=== PATIENT | male | born 1930 | race Hispanic/Latino ===

== ENCOUNTER 2018-11-08 20:18 | Emergency (ER) | payer MEDICARE ==
[2018-11-08] MEDS ORDERED: LOPRESSOR IV ONE (20:48)
[2018-11-08] MEDS ORDERED: TYLENOL PO ONE (20:48)
[2018-11-08] MEDS ORDERED: NACL 0.9% 500 ML 500 ML IV ONE (20:48)
[2018-11-08] MEDS ORDERED: NACL 0.9% 500 ML IR ONE (20:48)
[2018-11-08] MEDS ORDERED: BOOSTRIX IM ONE (20:49)
--- NOTE | 2018-11-08 20:54 | Emergency Department Report ---
ED Fall HPI - General Chief Complaint: Fall Stated Complaint: HYPERGLYCEMIA/FALL Time Seen by Provider: 11/08/18 20:29 Source: patient, EMS, old records reviewed Mode of arrival: Stretcher - History of Present Illness Initial Comments: Mr. Rodríguez is an 88 yo male with hx of dementia, CAD, CKD, CHF, atrial fibrillation who presents via EMS for fall in driveway. He struck head on pavement after fall while walking to mailbox. Denies chest pain. No amnesia surrounding event. Unwitnessed fall. According to EMR, anticoagulation contraindicated with hx of frequent falls. MD Complaint: fall -: This evening Fall From: standing When Fall Occurred: unsure Place Fall Occurred: home Loss of Consciousness: unsure Prolonged Down Time?: unclear Symptoms Prior to Fall: none Location: head Severity: moderate Quality: aching Context: tripped/slipped Associated Symptoms: headache - Related Data Home Medications Medication Instructions Recorded Confirmed Last Taken Insulin Aspart [Novolog] 100 unit SUB-Q DAILY 05/14/18 05/14/18 Unknown Allergies Allergy/AdvReac Type Severity Reaction Status Date / Time No Known Allergies Allergy Unverified 12/19/16 21:37 ED Review of Systems ROS: Stated complaint: HYPERGLYCEMIA/FALL Other details as noted in HPI Comment: All other systems reviewed and negative Eyes: denies: vision change Respiratory: denies: cough, shortness of breath Cardiovascular: denies: chest pain, palpitations ED Past Medical Hx - Past Medical History Previous Medical History?: Yes Hx Hypertension: Yes Hx Congestive Heart Failure: Yes Hx Diabetes: Yes Hx Deep Vein Thrombosis: No Hx Psychiatric Treatment: Yes (alzheimers) Hx Dementia: Yes Additional medical history: Afib? - Surgical History Hx Coronary Stent: Yes Hx Pacemaker: No Hx Internal Defibrillator: (?) Additional Surgical History: 1 heart stent - Social History Smoking Status: Never Smoker Substance Use Type: None - Medications Home Medications: Home Medications Medication Instructions Recorded Confirmed Last Taken Type Insulin Aspart [Novolog] 100 unit SUB-Q DAILY 05/14/18 05/14/18 Unknown History ED Physical Exam - General Limitations: Physical Limitation General appearance: alert, in no apparent distress - Head Head exam: Present: normocephalic, other (3 cm in length right forehead laceration horizontal just above right eyebrow 1 cm in depth) - Eye Eye exam: Present: normal appearance - ENT ENT exam: Present: mucous membranes moist - Neck Neck exam: Present: normal inspection, full ROM - Respiratory Respiratory exam: Present: normal lung sounds bilaterally. Absent: respiratory distress, wheezes, rales, rhonchi - Cardiovascular Cardiovascular Exam: Present: normal rhythm, tachycardia, irregular rhythm. Absent: systolic murmur, diastolic murmur, rubs, gallop - GI/Abdominal GI/Abdominal exam: Present: soft, normal bowel sounds. Absent: distended, tenderness, guarding, rebound - Rectal Rectal exam: Present: deferred - Extremities Exam Extremities exam: Present: normal inspection, other (no tenderness no deformity) - Back Exam Back exam: Present: normal inspection - Neurological Exam Neurological exam: Present: alert, other (oriented to name and place) - Psychiatric Psychiatric exam: Present: normal affect, normal mood - Skin Skin exam: Present: warm, dry, intact, normal color. Absent: rash ED Course Vital Signs 11/08/18 11/08/18 11/08/18 20:23 20:25 20:30 Temperature 98.4 F Pulse Rate 120 H 137 H 121 H Respiratory 11 L 12 13 Rate Blood Pressure 136/81 139/73 O2 Sat by Pulse 98 99 99 Oximetry 11/08/18 11/08/18 11/08/18 20:46 21:18 21:30 Temperature Pulse Rate 115 H 112 H 113 H Respiratory 13 18 11 L Rate Blood Pressure 139/88 127/89 O2 Sat by Pulse 98 92 99 Oximetry - Laceration /Wound Repair Right Face Wound Location: face Wound's Depth, Shape: superficial Wound Explored: clean Betadine Prep?: No Wound Debrided: minimal Wound Repaired With: Dermabond Sterile Dressing Applied?: No Progress: 3 layers of Dermabond tissue adhesive provided good Skin approximation ED Medical Decision Making - Lab Data Result diagrams: 11/08/18 21:01 11/08/18 21:01 - EKG Data 11/08/18 20:53 EKG obtained 2034 Atrial fibrillation RVR rate 130 beats a minute normal axis no ST elevation diffuse T-wave flattening prolonged QT - Radiology Data Radiology results: report reviewed CT head unremarkable for frontal scalp laceration and swelling no intracranial abnormality - Medical Decision Making 1. Fall with head injury facial laceration, tetanus booster provided, Dermabond laceration repair 2. Atrial fibrillation RVR treated with IV metoprolol, also provided IV hydration with history of dehydration, daughter will provide home medication tonight for further rate control 3. Hyperglycemia will be watched by her daughter at home Critical care attestation.: If time is entered above; I have spent that time in minutes in the direct care of this critically ill patient, excluding procedure time. ED Disposition Clinical Impression: Closed head injury, Facial laceration, Fibrillation, atrial, Hyperglycemia Disposition: DC-01 TO HOME OR SELFCARE Is pt being admited?: No Does the pt Need Aspirin: No Condition: Stable Instructions: Skin Adhesive Care (ED)
[2018-11-08 21:08] LABS: Basophils # (Auto) 0.1 K/mm3 (0.0-0.1); Basophils % (Auto) 1.1 % (0.0-1.8); Eosinophils # (Auto) 0.3 K/mm3 (0.0-0.4); Eosinophils % (Auto) 3.3 % (0.0-4.3); Lymphocytes # (Auto) 2.8 K/mm3 (1.2-5.4); Lymphocytes % (Auto) 33.8 % (13.4-35.0); Mean Corpuscular HGB Conc 33 % (32-34); Mean Corpuscular Volume 91 fl (84-94); Monocytes # (Auto) 0.7 K/mm3 (0.0-0.8); Monocytes % (Auto) 8.1 % (0.0-7.3); Platelet Count 270 K/mm3 (140-440); Red Blood Count 3.97 M/mm3 (3.65-5.03); Red Cell Distribution Width 14.7 % (13.2-15.2)
[2018-11-08 21:20] LABS: Calcium 8.5 mg/dL (8.4-10.2)
--- NOTE | 2018-11-08 21:33 | Cat Scan Report ---
PROCEDURE: CT HEAD/BRAIN WO CON TECHNIQUE: Computerized tomography of the head was performed without contrast material. CT DOSE LENGTH PRODUCT: 920.5 mGycm HISTORY: closed head injury fall COMPARISONS: May 14 2018 . FINDINGS: Skull and scalp: Right frontal scalp laceration is identified with mild degree swelling. . Paranasal sinuses: Normal . Ventricles and subarachnoid spaces: Prominent consistent with cerebral atrophy appropriate for patie nt's age. There is ventricular asymmetry which is most likely a normal variation. . Cerebrum: No evidence of hemorrhage, acute infarction or mass . Cerebellum and brainstem: No evidence of hemorrhage, acute infarction or mass . Vasculature: Normal . Other: None . ASPECTS: 10 IMPRESSION: No acute intracranial abnormality Right frontal scalp laceration and swelling. This document is electronically signed by Natalio Potter MD., Nov 08 2018 09:31:04 PM ET
[2018-11-08 23:06] VITALS: BP 128/81
== END 2018-11-08 23:06 | disposition home or self-care (01) ==
LOC: ED 20:18
DX: S01.81XA Laceration without foreign body of other part of head, initial encounter (principal); I48.91 Unspecified atrial fibrillation; E11.65 Type 2 diabetes mellitus with hyperglycemia; I13.0 Hypertensive heart and chronic kidney disease with heart failure and stage 1 through stage 4 chronic kidney disease, or unspecified chronic kidney disease; E11.22 Type 2 diabetes mellitus with diabetic chronic kidney disease; N18.9 Chronic kidney disease, unspecified; I50.9 Heart failure, unspecified; I25.10 Atherosclerotic heart disease of native coronary artery without angina pectoris; Z95.1 Presence of aortocoronary bypass graft; Z79.4 Long term (current) use of insulin; W01.0XXA Fall on same level from slipping, tripping and stumbling without subsequent striking against object, initial encounter; Y93.89 Activity, other specified; Y92.099 Unspecified place in other non-institutional residence as the place of occurrence of the external cause; Y99.8 Other external cause status
CPT/HCPCS: 36415; 70450; 80048; 85025; 90471; 90715; 93005; 93010; 96374; 99284

== ENCOUNTER 2018-12-02 06:23 | Inpatient (IN) | payer MEDICARE ==
--- NOTE | 2018-12-02 07:05 | Emergency Department Report ---
ED General Adult HPI - General Chief complaint: Hyperglycemia Stated complaint: DKA Time Seen by Provider: 12/02/18 06:57 Source: EMS Mode of arrival: Stretcher Limitations: No Limitations - History of Present Illness Initial comments: The patient presents to the emergency department with a chief complaint elevated blood glucose levels. Patient states she's been out of his insulin for the last 4 days. Patient complains of vomiting for the last 3-4 days as well. Patient denies any chest pain, shortness breath, or diarrhea. -: Gradual Severity scale (0 -10): 0 Consistency: constant Improves with: none Worsens with: none Associated Symptoms: denies other symptoms Treatments Prior to Arrival: none - Related Data Home Medications Medication Instructions Recorded Confirmed Last Taken Insulin Aspart [Novolog] 100 unit SUB-Q DAILY 05/14/18 05/14/18 Unknown Allergies Allergy/AdvReac Type Severity Reaction Status Date / Time No Known Allergies Allergy Unverified 12/19/16 21:37 ED Review of Systems ROS: Stated complaint: DKA Other details as noted in HPI Comment: All other systems reviewed and negative Constitutional: denies: chills, fever Eyes: denies: eye pain, eye discharge, vision change ENT: denies: ear pain, throat pain Respiratory: denies: cough, shortness of breath, wheezing Cardiovascular: denies: chest pain, palpitations Endocrine: no symptoms reported Gastrointestinal: nausea, vomiting. denies: abdominal pain, diarrhea Genitourinary: denies: urgency, dysuria Musculoskeletal: denies: back pain, joint swelling, arthralgia Skin: denies: rash, lesions Neurological: denies: headache, weakness, paresthesias Psychiatric: denies: anxiety, depression Hematological/Lymphatic: denies: easy bleeding, easy bruising ED Past Medical Hx - Past Medical History Previous Medical History?: Yes Hx Hypertension: Yes Hx Congestive Heart Failure: Yes Hx Diabetes: Yes Hx Deep Vein Thrombosis: No Hx Psychiatric Treatment: Yes (alzheimers) Hx Dementia: Yes Additional medical history: Afib? - Surgical History Past Surgical History?: Yes Hx Coronary Stent: Yes Hx Pacemaker: No Hx Internal Defibrillator: (?) Additional Surgical History: 1 heart stent - Social History Smoking Status: Never Smoker Substance Use Type: None - Medications Home Medications: Home Medications Medication Instructions Recorded Confirmed Last Taken Type Insulin Aspart [Novolog] 100 unit SUB-Q DAILY 05/14/18 05/14/18 Unknown History ED Physical Exam - General Limitations: No Limitations General appearance: alert, in no apparent distress - Head Head exam: Present: atraumatic, normocephalic - Eye Eye exam: Present: normal appearance, PERRL, EOMI - ENT ENT exam: Present: mucous membranes dry - Neck Neck exam: Present: normal inspection - Respiratory Respiratory exam: Present: normal lung sounds bilaterally. Absent: respiratory distress - Cardiovascular Cardiovascular Exam: Present: normal rhythm, tachycardia. Absent: systolic murmur, diastolic murmur, rubs, gallop - GI/Abdominal GI/Abdominal exam: Present: soft, normal bowel sounds. Absent: distended, tenderness - Rectal Rectal exam: Present: deferred - Extremities Exam Extremities exam: Present: normal inspection - Back Exam Back exam: Present: normal inspection - Neurological Exam Neurological exam: Present: alert, oriented X3, CN II-XII intact. Absent: motor sensory deficit - Psychiatric Psychiatric exam: Present: normal affect, normal mood - Skin Skin exam: Present: warm, dry, intact, normal color. Absent: rash ED Course Vital Signs 12/02/18 12/02/18 12/02/18 06:46 07:44 08:11 Temperature 97.6 F Pulse Rate 96 H 123 H 136 H Respiratory 19 Rate Blood Pressure 115/46 Blood Pressure 123/36 [Right] O2 Sat by Pulse 98 Oximetry 12/02/18 12/02/18 12/02/18 08:18 08:39 09:02 Temperature Pulse Rate 126 H 120 H 140 H Respiratory 22 22 22 Rate Blood Pressure Blood Pressure 96/46 99/38 108/52 [Right] O2 Sat by Pulse 97 97 97 Oximetry 12/02/18 09:28 Temperature Pulse Rate 133 H Respiratory Rate Blood Pressure 133/50 Blood Pressure [Right] O2 Sat by Pulse Oximetry ED Medical Decision Making - Lab Data Result diagrams: 12/02/18 07:03 12/02/18 07:03 Lab Results 12/02/18 12/02/18 12/02/18 Range/Units 06:37 07:03 07:03 WBC 18.5 H (4.5-11.0) K/mm3 RBC 4.03 (3.65-5.03) M/mm3 Hgb 11.9 (11.8-15.2) gm/dl Hct 38.1 (35.5-45.6) % MCV 95 H (84-94) fl MCH 29 (28-32) pg MCHC 31 L (32-34) % RDW 14.4 (13.2-15.2) % Plt Count 272 (140-440) K/mm3 Lymph % (Auto) 4.7 L (13.4-35.0) % [place] % (Auto) 5.8 (0.0-7.3) % Eos % (Auto) 0.1 (0.0-4.3) % Baso % (Auto) 0.6 (0.0-1.8) % Lymph # 0.9 L (1.2-5.4) K/mm3 [place] # 1.1 H (0.0-0.8) K/mm3 Eos # 0.0 (0.0-0.4) K/mm3 Baso # 0.1 (0.0-0.1) K/mm3 Seg Neutrophils % 88.8 H (40.0-70.0) % Seg Neutrophils # 16.4 H (1.8-7.7) K/mm3 VBG pH (7.320-7.420) Sodium 125 L (137-145) mmol/L Potassium 4.7 (3.6-5.0) mmol/L Chloride 79.3 L (98-107) mmol/L Carbon Dioxide TNR Anion Gap 45 mmol/L BUN 60 H (9-20) mg/dL Creatinine 3.5 H (0.8-1.5) mg/dL Estimated GFR 17 ml/min BUN/Creatinine Ratio 17 % Glucose 1151 H* (75-100) mg/dL POC Glucose > 500 H (70-105) Calcium 9.2 (8.4-10.2) mg/dL Total Bilirubin 0.30 (0.1-1.2) mg/dL AST 15 (5-40) units/L ALT 15 (7-56) units/L Alkaline Phosphatase 132 H (35-129) units/L Total Protein 6.4 (6.3-8.2) g/dL Albumin 3.7 L (3.9-5) g/dL Albumin/Globulin Ratio 1.4 % 12/02/ Range/Units 07:10 WBC (4.5-11.0) K/mm3 RBC (3.65-5.03) M/mm3 Hgb (11.8-15.2) gm/dl Hct (35.5-45.6) % MCV (84-94) fl MCH (28-32) pg MCHC (32-34) % RDW (13.2-15.2) % Plt Count (140-440) K/mm3 Lymph % (Auto) (13.4-35.0) % [place] % (Auto) (0.0-7.3) % Eos % (Auto) (0.0-4.3) % Baso % (Auto) (0.0-1.8) % Lymph # (1.2-5.4) K/mm3 [place] # (0.0-0.8) K/mm3 Eos # (0.0-0.4) K/mm3 Baso # (0.0-0.1) K/mm3 Seg Neutrophils % (40.0-70.0) % Seg Neutrophils # (1.8-7.7) K/mm3 VBG pH 7.098 L* (7.320-7.420) Sodium (137-145) mmol/L Potassium (3.6-5.0) mmol/L Chloride (98-107) mmol/L Carbon Dioxide Anion Gap mmol/L BUN (9-20) mg/dL Creatinine (0.8-1.5) mg/dL Estimated GFR ml/min BUN/Creatinine Ratio % Glucose (75-100) mg/dL POC Glucose (70-105) Calcium (8.4-10.2) mg/dL Total Bilirubin (0.1-1.2) mg/dL AST (5-40) units/L ALT (7-56) units/L Alkaline Phosphatase (35-129) units/L Total Protein (6.3-8.2) g/dL Albumin (3.9-5) g/dL Albumin/Globulin Ratio % - EKG Data -: EKG Interpreted by Me Rate: tachycardia (afib) - Radiology Data Radiology results: report reviewed - Medical Decision Making Given IV Cardizem IV fluids and IV insulin drip initiated Critical Care Time: Yes Critical care time in (mins) excluding proc time.: 35 Critical care attestation.: If time is entered above; I have spent that time in minutes in the direct care of this critically ill patient, excluding procedure time. ED Disposition Clinical Impression: Hyperglycemia, Afib Disposition: DC09 OP ADMIT IP TO THIS HOSP Is pt being admited?: Yes Does the pt Need Aspirin: No Condition: Fair Referrals: DESTINI CUELLAR [Other] - 3-5 Days
[2018-12-02 07:23] LABS: Basophils # (Auto) 0.1 K/mm3 (0.0-0.1); Basophils % (Auto) 0.6 % (0.0-1.8); Eosinophils % (Auto) 0.1 % (0.0-4.3); Hematocrit 38.1 % (35.5-45.6); Hemoglobin 11.9 gm/dl (11.8-15.2); Lymphocytes # (Auto) 0.9 K/mm3 (1.2-5.4); Lymphocytes % (Auto) 4.7 % (13.4-35.0); Mean Corpuscular HGB Conc 31 % (32-34); Mean Corpuscular Volume 95 fl (84-94); Monocytes # (Auto) 1.1 K/mm3 (0.0-0.8); Monocytes % (Auto) 5.8 % (0.0-7.3); Platelet Count 272 K/mm3 (140-440); Red Blood Count 4.03 M/mm3 (3.65-5.03); Red Cell Distribution Width 14.4 % (13.2-15.2)
[2018-12-02 07:35] LABS: Alanine Aminotransferase 15 units/L (7-56); Albumin 3.7 g/dL (3.9-5); BUN/Creatinine Ratio 17; Blood Urea Nitrogen 60 mg/dL (9-20); Calcium 9.2 mg/dL (8.4-10.2); Hemolysis Index 10
[2018-12-02] MEDS ORDERED: CARDIZEM IV ONE ×2 (07:43→09:16)
--- NOTE | 2018-12-02 07:56 | XRay Report ---
AP CHEST: HISTORY: Cough AP view of the chest demonstrates a normal mediastinal and cardiac contour with clear lungs and normal bony and soft tissue structures. IMPRESSION: Unremarkable AP chest. No significant change since 05/14/18.
[2018-12-02] MEDS ORDERED: ZOFRAN IM ONE (08:00)
[2018-12-02] MEDS ORDERED: NACL 0.9% 1000 ML 2,000 ML IV ONE (09:15)
[2018-12-02] MEDS ORDERED: D50W (25GM) Syringe IV PRN ×2 (09:18→13:09)
[2018-12-02] MEDS: HumuLIN R 100 UNITS in NACL 0.9% 99 ML IV SCH ×4 (10:27→21:12)
[2018-12-02 10:41] LABS: Bacteria,Urine 1+ /HPF (Negative); Bilirubin,Urine NEG (Negative); Blood,Urine SM (Negative); Color,Urine Yellow (Yellow); Mucus,Urine FEW /HPF; Urobilinogen,Urine < 2.0 mg/dL (<2.0)
[2018-12-02 10:41] LABS: BUN/Creatinine Ratio 17; Blood Urea Nitrogen 59 mg/dL (9-20); Hemolysis Index 5
--- NOTE | 2018-12-02 11:53 | History and Physical Report ---
History of Present Illness Date of examination: 12/02/18 Date of admission: 12/02/18 09:28 Chief complaint: Elevated blood glucose History of present illness: The patient is a 80-year-old white male with history of diabetes mellitus on insulin, chronic atrial fibrillation presents to the emergency department with a chief complaint elevated blood glucose levels. Patient states he has been out of his insulin for the last 4 days. Patient complains of vomiting for the last 3-4 days as well along with epigastric sharp, 7 out of 10 abdominal pain. Patient denies any chest pain, shortness breath, or diarrhea. On admission his blood glucose was 1151, pH of 7.09, bicarbonate 6, creatinine 3.5, UA Sofie for UTI with positive leukocytosis. Patient was given IV fluid bolus, placed on insulin drip. He also noted to have atrial fibrillation with RVR, given Car dizem 20 mg IV. Patient is getting admitted to the ICU for further prevention and management. Past History Past Medical History: atrial fib, diabetes, hypertension, hyperlipidemia, renal failure, other (dementia) Past Surgical History: Other (couldn't be obtained because of dementia) Social history: other (couldn't be obtained because of dementia) Family history: other (couldn't be obtained because of dementia) Review of System: Constitutional: no fever, no chills, no weight loss Ears, eyes, nose, mouth and throat: no nasal congestion, no nasal discharge, no sinus pressure, no vision change, no red eye. Neck: No neck pain or rigidity. Cardiovascular: No chest pain, no orthopnea, no palpitations, no leg swelling Respiratory: No shortness of breath, no cough, no congestion, no wheezing Gastrointestinal: + abdominal pain, + nausea, + vomiting Genitourinary : no dysuria, no hematuria Musculoskeletal: no joint swelling or muscle ache Integumentary: no rash, no pruritis Neurological: no parathesias, no numbness, no tingling Endocrine: no cold or heat intolerance, no polyuria or polydipsia Hematologic/Lymphatic: no easy bruising, no easy bleeding, no gland swelling Allergic/Immunologic: no urticaria, no angioedema. Medications and Allergies Allergies Allergy/AdvReac Type Severity Reaction Status Date / Time No Known Allergies Allergy Unverified 12/19/16 21:37 Home Medications Medication Instructions Recorded Confirmed Last Taken Type Insulin Aspart [Novolog] 100 unit SUB-Q DAILY 05/14/18 05/14/18 Unknown History Active Meds: Active Medications Dextrose (D50w (25gm) Syringe) 0 ml IV PRN PRN PRN Reason: Hypoglycemia Insulin Human Regular 100 (units/ Sodium Chloride) 100 mls @ 1 mls/hr IV TITR MATTI; Protocol Last Titration: 12/02/18 11:13 Dose: 11 units/hr, 11 mls/hr Documented by: Exam - Physical Exam Narrative exam: GENERAL: Elderly white male lying on bed appeared to be in mild discomfort. HEENT: Normocephalic. Atraumatic. No conjunctival congestion or icterus. Patient has moist mucous membranes. NECK: Supple. Trachea midline. CHEST/LUNGS: Clear to auscultated bilaterally, breathing nonlabored. No wheezes crackles or rhonchi. HEART/CARDIOVASCULAR: Regular in rate and rhythm. S1 and S2 positive. ABDOMEN: Abdomen is soft, epigastric tenderness. Patient has normal bowel sounds. SKIN: There is no rash. Warm and dry. NEURO: No focal motor deficit. Follows command. MUSCULOSKELETAL: No joint effusion or tenderness. EXTRIMITY: No edema, no cyanosis or clubbing. PSYCH: Cooperative. - Constitutional Vitals: Temp Pulse Resp BP Pulse Ox 97.6 F 123 H 22 123/51 97 12/02/18 06:46 12/02/18 10:33 12/02/18 10:33 12/02/18 10:33 12/02/18 10:33 Results - Labs CBC & Chem 7: 12/02/18 07:03 12/03/18 01:37 Labs: Abnormal lab results 12/02/18 12/02/18 12/02/18 Range/Units 06:37 07:03 07:03 WBC 18.5 H (4.5-11.0) K/mm3 MCV 95 H (84-94) fl MCHC 31 L (32-34) % Lymph % (Auto) 4.7 L (13.4-35.0) % Lymph # 0.9 L (1.2-5.4) K/mm3 Lake # 1.1 H (0.0-0.8) K/mm3 Seg Neutrophils % 88.8 H (40.0-70.0) % Seg Neutrophils # 16.4 H (1.8-7.7) K/mm3 VBG pH (7.320-7.420) Sodium 125 L (137-145) mmol/L Chloride 79.3 L (98-107) mmol/L Carbon Dioxide (22-30) mmol/L BUN 60 H (9-20) mg/dL Creatinine 3.5 H (0.8-1.5) mg/dL Glucose 1151 H* (75-100) mg/dL POC Glucose > 500 H (70-105) Phosphorus (2.5-4.5) mg/dL Alkaline Phosphatase 132 H (35-129) units/L Albumin 3.7 L (3.9-5) g/dL Urine WBC (Auto) (0.0-6.0) /HPF 12/02/18 12/02/18 12/02/18 Range/Units 07:10 09:07 09:07 WBC (4.5-11.0) K/mm3 MCV (84-94) fl MCHC (32-34) % Lymph % (Auto) (13.4-35.0) % Lymph # (1.2-5.4) K/mm3 [place] # (0.0-0.8) K/mm3 Seg Neutrophils % (40.0-70.0) % Seg Neutrophils # (1.8-7.7) K/mm3 VBG pH 7.098 L* (7.320-7.420) Sodium 127 L (137-145) mmol/L Chloride 82.2 L (98-107) mmol/L Carbon Dioxide 8 L* (22-30) mmol/L BUN 59 H (9-20) mg/dL Creatinine 3.4 H (0.8-1.5) mg/dL Glucose 1116 H* (75-100) mg/dL POC Glucose (70-105) Phosphorus 6.30 H (2.5-4.5) mg/dL Alkaline Phosphatase (35-129) units/L Albumin (3.9-5) g/dL Urine WBC (Auto) (0.0-6.0) /HPF 12/02/18 Range/Units 09:49 WBC (4.5-11.0) K/mm3 MCV (84-94) fl MCHC (32-34) % Lymph % (Auto) (13.4-35.0) % Lymph # (1.2-5.4) K/mm3 [place] # (0.0-0.8) K/mm3 Seg Neutrophils % (40.0-70.0) % Seg Neutrophils # (1.8-7.7) K/mm3 VBG pH (7.320-7.420) Sodium (137-145) mmol/L Chloride (98-107) mmol/L Carbon Dioxide (22-30) mmol/L BUN (9-20) mg/dL Creatinine (0.8-1.5) mg/dL Glucose (75-100) mg/dL POC Glucose (70-105) Phosphorus (2.5-4.5) mg/dL Alkaline Phosphatase (35-129) units/L Albumin (3.9-5) g/dL Urine WBC (Auto) 31.0 H (0.0-6.0) /HPF Assessment and Plan DKA with history of uncontrolled diabetes - - We will admit the patient to ICU, placed on DKA protocol - We'll continue insulin drip and monitor blood glucose every hour - We will continue IV fluid hydration with normal saline - Will change to D5 normal saline once blood glucose reaches below 250 - We'll repeat BMP every 6 hours till anion gap closes - We will replace potassium and magnesium as needed - We'll keep the patient nothing by mouth for now, will place on ADA diet when anion gap closes - We'll provide GI and DVT prophylaxis Atrial fib with RVR - Started on amiodarone drip, as needed metoprolol IV - Consult cardiology - per history Patient is not on any anticoagulation because of his recurrent fall and advanced age Acute kidney injury on possible CKD - Continue repeat, monitor creatinine, get renal ultrasound - Consult nephrology UTI with possible sepsis -Start on Rocephin, get blood culture urine culture Coffee-ground emesis - We'll place on Protonix iv, follow H&H - Consult GI Dementia, cont supportive care, need to get more history from daughter DVT prophylaxis, SCD The high probability of a clinically significant, sudden or life threatening deterioration of the system(s) required my full and direct attention, intervention and personal management. The aggregate critical care time was [45] minutes. This time is in addition to time spent performing reported procedures but includes the following: [x] Data Review and interpretation [x] Patient assessment and monitoring of vital signs [x] Documentation [x] Medication orders and management
[2018-12-02] MEDS: NACL 0.9% 1000 ML 1,000 ML IV SCH ×2 (12:00→17:10)
[2018-12-02 12:03] LABS: Calcium 8.8 mg/dL (8.4-10.2)
--- NOTE | 2018-12-02 12:05 | Consultation ---
History of Present Illness - Reason for Consult Consult date: 12/02/18 DKA - History of Present Illness 88 y/o with insulin dependent diabetes, who has been out of insulin for the last 4 days admitted with nausea and vomiting and found to have a blood sugar of >1000 Past History Past Medical History: diabetes Medications and Allergies Allergies Allergy/AdvReac Type Severity Reaction Status Date / Time No Known Allergies Allergy Unverified 12/19/16 21:37 Home Medications Medication Instructions Recorded Confirmed Last Taken Type Insulin Aspart [Novolog] 100 unit SUB-Q DAILY 05/14/18 05/14/18 Unknown History Active Meds: Active Medications Dextrose (D50w (25gm) Syringe) 0 ml IV PRN PRN PRN Reason: Hypoglycemia Insulin Human Regular 100 (units/ Sodium Chloride) 100 mls @ 1 mls/hr IV TITR MATTI; Protocol Last Titration: 12/02/18 11:13 Dose: 11 units/hr, 11 mls/hr Documented by: Sodium Chloride (Nacl 0.9% 1000 Ml) 1,000 mls @ 150 mls/hr IV DIRECT MATTI Review of Systems All systems: negative Exam - Constitutional Vitals: Temp Pulse Resp BP Pulse Ox 97.6 F 123 H 22 123/51 97 12/02/18 06:46 12/02/18 10:33 12/02/18 10:33 12/02/18 10:33 12/02/18 10:33 General appearance: Present: no acute distress, cachectic - EENT Eyes: Present: PERRL, EOM intact ENT: hearing intact - Neck Neck: Present: supple, normal ROM - Respiratory Respiratory effort: labored Respiratory: bilateral: diminished - Cardiovascular Rhythm: irregularly irregular (and tachycardic) - Abdominal General gastrointestinal: Present: soft, non-tender - Musculoskeletal Musculoskeletal: strength equal bilaterally Results - Labs CBC & Chem 7: 12/03/18 04:21 12/03/18 09:07 Labs: Abnormal lab results 12/02/18 12/02/18 12/02/18 Range/Units 06:37 07:03 07:03 WBC 18.5 H (4.5-11.0) K/mm3 MCV 95 H (84-94) fl MCHC 31 L (32-34) % Lymph % (Auto) 4.7 L (13.4-35.0) % Lymph # 0.9 L (1.2-5.4) K/mm3 [place] # 1.1 H (0.0-0.8) K/mm3 Seg Neutrophils % 88.8 H (40.0-70.0) % Seg Neutrophils # 16.4 H (1.8-7.7) K/mm3 VBG pH (7.320-7.420) Sodium 125 L (137-145) mmol/L Chloride 79.3 L (98-107) mmol/L Carbon Dioxide (22-30) mmol/L BUN 60 H (9-20) mg/dL Creatinine 3.5 H (0.8-1.5) mg/dL Glucose 1151 H* (75-100) mg/dL POC Glucose > 500 H (70-105) Phosphorus (2.5-4.5) mg/dL Alkaline Phosphatase 132 H (35-129) units/L Albumin 3.7 L (3.9-5) g/dL Urine WBC (Auto) (0.0-6.0) /HPF 12/02/18 12/02/18 12/02/18 Range/Units 07:10 09:07 09:07 WBC (4.5-11.0) K/mm3 MCV (84-94) fl MCHC (32-34) % Lymph % (Auto) (13.4-35.0) % Lymph # (1.2-5.4) K/mm3 [place] # (0.0-0.8) K/mm3 Seg Neutrophils % (40.0-70.0) % Seg Neutrophils # (1.8-7.7) K/mm3 VBG pH 7.098 L* (7.320-7.420) Sodium 127 L (137-145) mmol/L Chloride 82.2 L (98-107) mmol/L Carbon Dioxide 8 L* (22-30) mmol/L BUN 59 H (9-20) mg/dL Creatinine 3.4 H (0.8-1.5) mg/dL Glucose 1116 H* (75-100) mg/dL POC Glucose (70-105) Phosphorus 6.30 H (2.5-4.5) mg/dL Alkaline Phosphatase (35-129) units/L Albumin (3.9-5) g/dL Urine WBC (Auto) (0.0-6.0) /HPF 06/03/19 06/03/19 Range/Units 09:49 11:06 WBC (4.5-11.0) K/mm3 MCV (84-94) fl MCHC (32-34) % Lymph % (Auto) (13.4-35.0) % Lymph # (1.2-5.4) K/mm3 [place] # (0.0-0.8) K/mm3 Seg Neutrophils % (40.0-70.0) % Seg Neutrophils # (1.8-7.7) K/mm3 VBG pH (7.320-7.420) Sodium 129 L (137-145) mmol/L Chloride 84.0 L (98-107) mmol/L Carbon Dioxide (22-30) mmol/L BUN 59 H (9-20) mg/dL Creatinine 3.4 H (0.8-1.5) mg/dL Glucose (75-100) mg/dL POC Glucose (70-105) Phosphorus (2.5-4.5) mg/dL Alkaline Phosphatase (35-129) units/L Albumin (3.9-5) g/dL Urine WBC (Auto) 31.0 H (0.0-6.0) /HPF - Imaging and Cardiology Chest x-ray: image reviewed (clear, no evidence of acute disease) Assessment and Plan 88 y/o male with DKA and afib with RVR. 1. IV hydration 2. Rate control 3. Insulin drip until Anion Gap closes 4. Electrolyte monitoring per protocol CCT 31 minutes.
[2018-12-02] MEDS ORDERED: TYLENOL PO PRN (13:24)
[2018-12-02] MEDS ORDERED: NORCO 5/325 PO PRN (13:24)
[2018-12-02] MEDS ORDERED: ZOFRAN IV PRN (13:24)
[2018-12-02] MEDS ORDERED: CORDARONE 900 MG in D5W 482 ML IV SCH (14:00)
[2018-12-02] MEDS ORDERED: ROCEPHIN/NS 1 GM/50 ML 1 GM/50 ML BAG IV SCH (14:00)
[2018-12-02] MEDS ORDERED: LOPRESSOR IV SCH (14:00)
[2018-12-02] MEDS ORDERED: HumuLIN R 100 UNITS in NACL 0.9% 99 ML IV SCH (14:00)
--- NOTE | 2018-12-02 14:24 | Consultation ---
History of Present Illness Consult date: 12/02/18 Requesting physician: ASHISH NEIL Consult reason: atrial fibrillation History of present illness: Pt is an 88YO male with a past medical history of reported CAD s/p stent placement several years ago, paroxysmal atrial fibrillation (not a candidate for care home systemic anticoagulation in the past given advanced age, dementia and frequent falls), HTN, DM, CKD, dementia, frequent falls. He has been seen by our practice on prior hospitalizations but has not been compliant with OP follow up. Pt is a rather poor historian. He states that he does not recall why he came to the hospital. Per the chart, pt presented with c/o nausea, vomiting and elevated blood glucose levels after being out of his insulin for the last 4 days. Pt denies any cardiac complaints. Pt has been diagnosed with DKA and suspected GI bleed with coffee ground emesis. He was noted to be in AFib with RVR and thus cardiology has been consulted. He has been initiated on amio gtt. Echo done 11/2016 showed EF 35-40%, mild TR, mild pulm HTN with RVSP 42mmHg. Echo done 12/2017 showed EF 50-55%, trace MR, mild TR. Lexiscan MPI stress test done 12/2016 was negative for ischemia, no gated studies done due to AFib. Past History Past Medical History: atrial fib, CAD, diabetes, hypertension, other (ckd) Medications and Allergies Allergies Allergy/AdvReac Type Severity Reaction Status Date / Time No Known Allergies Allergy Unverified 12/19/16 21:37 Home Medications Medication Instructions Recorded Confirmed Last Taken Type Insulin Aspart [Novolog] 100 unit SUB-Q DAILY 05/14/18 05/14/18 Unknown History Active Meds: Active Medications Acetaminophen (Tylenol) 650 mg PO Q4H PRN PRN Reason: Pain MILD(1-3)/Fever >100.5/GRANDE Acetaminophen/Hydrocodone Bitart ([place] 5/325) 2 each PO Q6H PRN PRN Reason: Pain, Moderate (4-6) Dextrose (D50w (25gm) Syringe) 0 ml IV PRN PRN PRN Reason: Hypoglycemia Heparin Sodium (Porcine) (Heparin) 5,000 unit SUB-Q Q12HR MATTI Insulin Human Regular 100 (units/ Sodium Chloride) 100 mls @ 1 mls/hr IV TITR MATTI; Protocol Last Titration: 12/02/18 13:15 Dose: 22 units/hr, 22 mls/hr Documented by: Sodium Chloride (Nacl 0.9% 1000 Ml) 1,000 mls @ 150 mls/hr IV DIRECT MATTI Last Admin: 12/02/18 12:00 Dose: 150 mls/hr Documented by: Amiodarone HCl 900 mg/ (Dextrose) 500 mls @ 33.333 mls/hr IV DIRECT MATTI; Protocol Last Admin: 12/02/18 13:26 Dose: 1 mg/min, 33.333 mls/hr Documented by: Ceftriaxone Sodium (Rocephin/Ns 1 Gm/50 Ml) 1 gm in 50 mls @ 100 mls/hr IV Q24HR MATTI; Protocol Metoprolol Tartrate (Lopressor) 5 mg IV Q6HR MATTI Last Admin: 12/02/18 14:04 Dose: 5 mg Documented by: Ondansetron HCl (Zofran) 4 mg IV Q8H PRN PRN Reason: N/V unrelieved by Magno Last Admin: 12/02/18 14:10 Dose: 4 mg Documented by: Review of Systems Gastrointestinal: nausea, vomiting Endocrine: high blood sugars Physical Examination Vital Signs Temp Pulse Resp BP Pulse Ox 97.6 F 96 H 19 123/36 98 12/02/18 06:46 12/02/18 06:46 12/02/18 06:46 12/02/18 06:46 12/02/18 06:46 General appearance: no acute distress HEENT: Positive: PERRL, Normocephaly, Mucus Membranes Moist Neck: Positive: neck supple, trachea midline Cardiac: Positive: irregularly irregular, S1/S2, Tachycardia Lungs: Positive: Decreased Breath Sounds Skin: Negative: Rash Musculoskeletal: No Pain Extremities: Absent: edema Results 12/02/18 07:03 12/02/18 13:36 Cardiac Enzymes 12/02/18 Range/Units 07:03 AST 15 (5-40) units/L CBC 12/02/18 Range/Units 07:03 WBC 18.5 H (4.5-11.0) K/mm3 RBC 4.03 (3.65-5.03) M/mm3 Hgb 11.9 (11.8-15.2) gm/dl Hct 38.1 (35.5-45.6) % Plt Count 272 (140-440) K/mm3 Lymph # 0.9 L (1.2-5.4) K/mm3 [place] # 1.1 H (0.0-0.8) K/mm3 Eos # 0.0 (0.0-0.4) K/mm3 Baso # 0.1 (0.0-0.1) K/mm3 Comprehensive Metabolic Panel 12/02/18 12/02/18 12/02/18 Range/Units 07:03 09:07 09:07 Sodium 125 L 127 L (137-145) mmol/L Potassium 4.7 4.8 (3.6-5.0) mmol/L Chloride 79.3 L 82.2 L (98-107) mmol/L Carbon Dioxide TNR 8 L* TNR BUN 60 H 59 H (9-20) mg/dL Creatinine 3.5 H 3.4 H (0.8-1.5) mg/dL Glucose 1151 H* 1116 H* (75-100) mg/dL Calcium 9.2 9.0 (8.4-10.2) mg/dL AST 15 (5-40) units/L ALT 15 (7-56) units/L Alkaline Phosphatase 132 H (35-129) units/L Total Protein 6.4 (6.3-8.2) g/dL Albumin 3.7 L (3.9-5) g/dL 12/02/18 12/02/18 Range/Units 11:06 12:40 Sodium 129 L (137-145) mmol/L Potassium 4.4 (3.6-5.0) mmol/L Chloride 84.0 L (98-107) mmol/L Carbon Dioxide 6 L* BUN 59 H (9-20) mg/dL Creatinine 3.4 H (0.8-1.5) mg/dL Glucose 1043 H* 986 H* (75-100) mg/dL Calcium 8.8 (8.4-10.2) mg/dL AST (5-40) units/L ALT (7-56) units/L Alkaline Phosphatase (35-129) units/L Total Protein (6.3-8.2) g/dL Albumin (3.9-5) g/dL - Imaging and Cardiology Echo: report reviewed (12/2017 showed EF 50-55%, trace MR, mild TR. ) EKG: report reviewed, image reviewed EKG interpretations - Telemetry EKG Rhythm: Atrial Fibrillation - EKG Supraventricular dysrhythmia: atrial fibrillation Assessment and Plan Agree with present cardiac mangement, including amio gtt and IV lopressor as BPs permit. Pt has not been a candidate for care home systemic anticoagulation in the past given advanced age, dementia and frequent falls and pt currently has suspected GI bleed and therefore no plans for initiation of AC at this time. F/u echo. The patient has been seen in conjunction with Dr. Burks who agrees with the assessment and plan of care. - Patient Problems (1) Paroxysmal atrial fibrillation with rapid ventricular response Current Visit: Yes Status: Acute (2) DKA (diabetic ketoacidoses) Current Visit: Yes Status: Acute (3) Nausea and vomiting Current Visit: Yes Status: Acute (4) GI bleed Current Visit: Yes Status: Suspected (5) Acute on chronic renal insufficiency Current Visit: Yes Status: Acute (6) UTI (urinary tract infection) Current Visit: Yes Status: Acute (7) CAD (coronary artery disease) Current Visit: Yes Status: Chronic Qualifiers: Coronary Disease-Associated Artery/Lesion type: [place] artery (8) History of coronary artery stent placement Current Visit: Yes Status: Chronic (9) HTN (hypertension) Current Visit: Yes Status: Chronic Qualifiers: Hypertension type: essential hypertension Qualified Code(s): I10 - Essential (primary) hypertension (10) Dementia Current Visit: Yes Status: Chronic
[2018-12-02] MEDS ORDERED: MORPHINE IV PRN (14:46)
[2018-12-02] MEDS ORDERED: LOPRESSOR IV PRN (15:42)
[2018-12-02 15:47] LABS: Calcium 8.9 mg/dL (8.4-10.2)
[2018-12-02] MEDS: PROTONIX IV SCH ×2 (17:10→21:36)
--- NOTE | 2018-12-02 17:19 | Consultation ---
History of Present Illness - Reason for Consult Consult date: 12/02/18 acute renal failure, chronic renal failure, metabolic acidosis - History of Present Illness The patient is an 88 YO male with history significant for Type 2 DM, HTN, CAD s/p stent, Paroxysmal A.fib, Dementia and CKD stage 3 who was brought to the [facility] ED with nausea, vomiting and high blood glucose. Patient was confused to give any history. He was out of his insulin for the about 4 days. Also suspected GI bleed with h/o coffee ground emesis. Initial workup showed blood sugar 1151, bicarb 6 and creatinine 3.5. Pt was admitted with DKA and DARREN. He was also noted to be in AFib with RVR. Nephrology was consulted to manage DARREN. Past History Past Medical History: atrial fib, CAD, diabetes, hypertension, other (ckd) Medications and Allergies Allergies Allergy/AdvReac Type Severity Reaction Status Date / Time No Known Allergies Allergy Unverified 12/19/16 21:37 Home Medications Medication Instructions Recorded Confirmed Last Taken Type Insulin Aspart [Novolog] 100 unit SUB-Q DAILY 05/14/18 05/14/18 Unknown History Active Meds: Active Medications Acetaminophen (Tylenol) 650 mg PO Q4H PRN PRN Reason: Pain MILD(1-3)/Fever >100.5/GRANDE Acetaminophen/Hydrocodone Bitart ([place] 5/325) 2 each PO Q6H PRN PRN Reason: Pain, Moderate (4-6) Dextrose (D50w (25gm) Syringe) 0 ml IV PRN PRN PRN Reason: Hypoglycemia Insulin Human Regular 100 (units/ Sodium Chloride) 100 mls @ 1 mls/hr IV TITR MATTI; Protocol Last Titration: 12/02/18 15:55 Dose: Infused Documented by: Sodium Chloride (Nacl 0.9% 1000 Ml) 1,000 mls @ 150 mls/hr IV DIRECT MATTI Last Admin: 12/02/18 17:10 Dose: 150 mls/hr Documented by: Amiodarone HCl 900 mg/ (Dextrose) 500 mls @ 33.333 mls/hr IV DIRECT MATTI; Protocol Last Admin: 12/02/18 13:26 Dose: 1 mg/min, 33.333 mls/hr Documented by: Ceftriaxone Sodium (Rocephin/Ns 1 Gm/50 Ml) 1 gm in 50 mls @ 100 mls/hr IV Q24HR [facility]; Protocol Last Admin: 12/02/18 17:04 Dose: 100 mls/hr Documented by: Metoprolol Tartrate (Lopressor) 5 mg IV Q6HR PRN PRN Reason: Tachyarrhythmias Morphine Sulfate (Morphine) 2 mg IV Q4H PRN PRN Reason: Pain , Severe (7-10) Ondansetron HCl (Zofran) 4 mg IV Q8H PRN PRN Reason: N/V unrelieved by Reglan Last Admin: 12/02/18 14:10 Dose: 4 mg Documented by: Pantoprazole Sodium (Protonix) 40 mg IV BID [facility] Last Admin: 12/02/18 17:10 Dose: 40 mg Documented by: Review of Systems ROS unobtainable: due to mental status Exam - Vital Signs Vital signs: Vital Signs Temp Pulse Resp BP Pulse Ox 97.6 F 96 H 19 123/36 98 12/02/18 06:46 12/02/18 06:46 12/02/18 06:46 12/02/18 06:46 12/02/18 06:46 - General Appearance General appearance: well-developed, appears stated age, other (not in distress) EENT: ATNC, PERRL, mucous membranes dry Neck: Present: neck supple, trachea midline Respiratory: Clear to Ascultation Heart: irregularly irregular, S1S2, no murmurs Gastrointestinal: Present: normoactive bowel sounds. Absent: tenderness, distended Integumentary: no rash, warm and dry Neurologic: other (stuporous) Musculoskeletal: Present: other (no edema) Results - Lab Results 12/03/18 04:21 12/03/18 09:07 Most recent lab results Calcium 8.9 mg/dL (8.4-10.2) 12/02/18 15:01 Phosphorus 5.20 mg/dL (2.5-4.5) H 12/02/18 13:36 Magnesium 1.80 mg/dL (1.7-2.3) 12/02/18 13:36 Assessment and Plan 1. Acute kidney injury: Vasomotor / hemodynamically mediated DARREN superimposed on CKD stage 3 in the setting of volume depletion / DKA. Continue IV fluids. Renal function is improving. Monitor renal function. Renal prognosis is guarded. Avoid nephrotoxic agents. Meds dosage based on GFR. 2. FEN: Hypkalemia, replete K. Continue IV fluids. Monitor lytes. 3. DKA: On Insulin drip. 4. UTI. 5. Paroxysmal A.fib. 6. Dementia.
[2018-12-02 19:31] LABS: Calcium 8.8 mg/dL (8.4-10.2)
[2018-12-02] MEDS: KCL 10MEQ/100ML 10 MEQ/100 ML BAG IV SCH ×4 (20:04→23:16)
[2018-12-02 21:52] LABS: Calcium 8.5 mg/dL (8.4-10.2)
[2018-12-02] MEDS ORDERED: HEPARIN SUB-Q SCH (22:00)
[2018-12-03] MEDS: NACL 0.9% 1000 ML 1,000 ML IV SCH (00:01)
[2018-12-03] MEDS: HumuLIN R 100 UNITS in NACL 0.9% 99 ML IV SCH ×4 (00:14→12:09)
[2018-12-03] MEDS ORDERED: D5W/0.45% NACL/KCL 20 MEQ 20 MEQ/1,000 ML BAG IV SCH (01:00)
[2018-12-03 02:17] LABS: Calcium 8.7 mg/dL (8.4-10.2)
[2018-12-03] MEDS ORDERED: NACL 0.9% 1000 ML 1,000 ML IV ONE ×3 (03:56→13:00)
[2018-12-03 04:36] LABS: Basophils % (Auto) 0.8 % (0.0-1.8); Eosinophils % (Auto) 0.1 % (0.0-4.3); Hematocrit 33.9 % (35.5-45.6); Hemoglobin 11.7 gm/dl (11.8-15.2); Lymphocytes # (Auto) 1.2 K/mm3 (1.2-5.4); Lymphocytes % (Auto) 24.7 % (13.4-35.0); Mean Corpuscular HGB Conc 34 % (32-34); Mean Corpuscular Volume 90 fl (84-94); Monocytes # (Auto) 0.2 K/mm3 (0.0-0.8); Monocytes % (Auto) 4.7 % (0.0-7.3); Platelet Count 236 K/mm3 (140-440); Red Blood Count 3.77 M/mm3 (3.65-5.03); Red Cell Distribution Width 13.6 % (13.2-15.2)
[2018-12-03 04:56] LABS: Calcium 8.4 mg/dL (8.4-10.2)
--- NOTE | 2018-12-03 06:56 | Event Note ---
Date: 12/03/18 ALIS Mello called to report pt BP 71/33 and HR 51. 1 liter NS bolus, stat EKG, PT, INR, and troponin ordered. Hold Amino gtt.
[2018-12-03] MEDS ORDERED: LEVOPHED DRIP 4 MG/NS 250 ML 4 MG/250 ML BAG IV ONE (07:15)
[2018-12-03] MEDS: LEVOPHED DRIP 4 MG/NS 250 ML 4 MG/250 ML BAG IV SCH ×2 (07:15→11:30)
--- NOTE | 2018-12-03 07:24 | Event Note ---
Date: 12/03/18 I was called earlier this morning by the Nursing staff that the patient was hypotensive, agonal breathing and severe bradycardia. Patient will be intubated, centralline to be placed and will be placed on levophed. Patient was given atropine and heart rate normalized. Family notified.
[2018-12-03] MEDS ORDERED: SODIUM BICARBONATE 150 MEQ in D5W 1,000 ML IV SCH (08:00)
--- NOTE | 2018-12-03 08:16 | XRay Report ---
AP CHEST: HISTORY: Endotracheal tube placement The endotracheal tube is in good position terminating 4.7 cm superior to the ignacia. Heart size and pulmonary vascularity are within normal limits. Mild bibasilar atelectatic changes are identified. No pleural effusion or pneumothorax. IMPRESSION: Adequate endotracheal tube placement. Mild bibasilar atelectasis.
--- NOTE | 2018-12-03 08:21 | XRay Report ---
AP ABDOMEN: HISTORY: Nasogastric tube placement. The nasogastric tube terminates in the fundus of the stomach. There are gas-filled loops of bowel in the upper abdomen suggestive of mild ileus or partial obstruction. The pelvis is not included. Subtle gas overlies the liver shadow which could represent pneumobilia or portal venous gas. IMPRESSION: The nasogastric tube terminates in the fundus of the stomach. Incomplete abdomen but a mild diffuse ileus is suspected. A partial bowel obstruction is difficult to exclude. There is subtle gas overlying the liver shadow which could represent pneumobilia or portal venous gas. Given these findings, further evaluation with CT abdomen pelvis with IV contrast should be considered.
[2018-12-03] MEDS ORDERED: LEVOPHED DRIP 4 MG/NS 250 ML 4 MG/250 ML BAG IV SCH (09:00)
--- NOTE | 2018-12-03 09:13 | Progress Note ---
Assessment and Plan 1. Acute kidney injury: Vasomotor / hemodynamically mediated DARREN superimposed on CKD stage 3 in the setting of volume depletion / DKA. Continue IV fluids. Renal function remains the same. Monitor renal function. Renal prognosis is guarded. Avoid nephrotoxic agents. Meds dosage based on GFR. 2. FEN: Metabolic acidosis, bicarbonate drip. Hypokalemia, replete K. Continue IV fluids. Monitor lytes. 3. DKA: On Insulin drip. 4. Shock: On Levophed. 5. UTI. 6. Paroxysmal A.fib. 7. Dementia. Subjective Date of service: 12/03/18 Interval history: Patient was seen and examined at the bedside. Patient is intubated on vent. Objective - Vital Signs Vital signs: Vital Signs - 12hr 12/02/18 12/02/18 12/02/18 21:21 21:30 21:41 Temperature Pulse Rate 83 83 83 Pulse Rate [ From Monitor] Respiratory 26 H 31 H 30 H Rate Blood Pressure 98/33 96/43 96/43 O2 Sat by Pulse 98 97 97 Oximetry 12/02/18 12/02/18 12/02/18 21:51 22:00 22:11 Temperature Pulse Rate 82 83 83 Pulse Rate [ From Monitor] Respiratory 26 H 32 H 29 H Rate Blood Pressure 96/43 89/45 99/40 O2 Sat by Pulse 97 98 98 Oximetry 12/02/18 12/02/18 12/02/18 22:21 22:30 22:40 Temperature Pulse Rate 84 85 79 Pulse Rate [ From Monitor] Respiratory 30 H 33 H 35 H Rate Blood Pressure 99/40 99/45 99/45 O2 Sat by Pulse 98 98 99 Oximetry 12/02/18 12/02/18 12/02/18 22:51 22:52 23:00 Temperature Pulse Rate 79 83 81 Pulse Rate [ From Monitor] Respiratory 32 H 33 H 33 H Rate Blood Pressure 99/45 99/45 95/41 O2 Sat by Pulse 97 93 98 Oximetry 12/02/18 12/02/18 12/02/18 23:01 23:05 23:11 Temperature 98.2 F Pulse Rate 81 80 Pulse Rate [ From Monitor] Respiratory 32 H 34 H Rate Blood Pressure 95/41 95/41 O2 Sat by Pulse 98 98 Oximetry 12/02/18 12/02/18 12/02/18 23:21 23:30 23:41 Temperature Pulse Rate 81 80 83 Pulse Rate [ From Monitor] Respiratory 32 H 24 34 H Rate Blood Pressure 95/41 90/46 95/41 O2 Sat by Pulse 98 97 93 Oximetry 12/02/18 12/03/18 12/03/18 23:51 00:00 00:11 Temperature Pulse Rate 81 81 81 Pulse Rate [ 81 From Monitor] Respiratory 35 H 31 H 35 H Rate Blood Pressure 95/41 96/46 90/46 O2 Sat by Pulse 94 96 96 Oximetry 12/03/18 12/03/18 12/03/18 00:21 00:30 00:41 Temperature Pulse Rate 82 82 82 Pulse Rate [ From Monitor] Respiratory 35 H 34 H 31 H Rate Blood Pressure 90/46 92/39 92/39 O2 Sat by Pulse 97 94 94 Oximetry 12/03/18 12/03/18 12/03/18 00:51 01:00 01:11 Temperature Pulse Rate 81 83 81 Pulse Rate [ From Monitor] Respiratory 38 H 37 H 38 H Rate Blood Pressure 92/39 101/36 96/46 O2 Sat by Pulse 95 92 90 Oximetry 12/03/18 12/03/18 12/03/18 01:21 01:30 01:41 Temperature Pulse Rate 83 79 83 Pulse Rate [ From Monitor] Respiratory 37 H 40 H 38 H Rate Blood Pressure 96/46 100/44 100/44 O2 Sat by Pulse 89 92 90 Oximetry 12/03/18 12/03/18 12/03/18 01:51 02:00 02:11 Temperature Pulse Rate 81 82 80 Pulse Rate [ From Monitor] Respiratory 41 H 32 H 41 H Rate Blood Pressure 100/44 81/38 101/36 O2 Sat by Pulse 90 69 L 90 Oximetry 12/03/18 12/03/18 12/03/18 02:21 02:30 02:41 Temperature Pulse Rate 88 85 82 Pulse Rate [ From Monitor] Respiratory 42 H 39 H 39 H Rate Blood Pressure 101/36 92/37 92/37 O2 Sat by Pulse 90 90 89 Oximetry 12/03/18 12/03/18 12/03/18 02:51 03:00 03:11 Temperature Pulse Rate 86 86 82 Pulse Rate [ From Monitor] Respiratory 41 H 41 H 34 H Rate Blood Pressure 92/37 90/38 90/38 O2 Sat by Pulse 87 87 86 Oximetry 06/10/1812/03/18 12/03/18 03:21 03:23 03:31 Temperature 97.5 F L Pulse Rate 84 85 Pulse Rate [ From Monitor] Respiratory 33 H 18 Rate Blood Pressure 90/38 90/38 O2 Sat by Pulse Oximetry 12/03/18 12/03/18 12/03/18 03:40 03:51 04:00 Temperature Pulse Rate 91 H 87 87 Pulse Rate [ 81 From Monitor] Respiratory 27 H 34 H 36 H Rate Blood Pressure 76/33 80/34 86/38 O2 Sat by Pulse 83 L 87 90 Oximetry 12/03/18 12/03/18 12/03/18 04:11 04:21 04:30 Temperature Pulse Rate 83 78 76 Pulse Rate [ From Monitor] Respiratory 36 H 34 H 27 H Rate Blood Pressure 86/38 86/35 82/32 O2 Sat by Pulse 90 91 93 Oximetry 12/03/18 12/03/18 12/03/18 04:41 04:51 05:00 Temperature Pulse Rate 78 76 82 Pulse Rate [ From Monitor] Respiratory 33 H 25 H 31 H Rate Blood Pressure 82/32 84/36 74/35 O2 Sat by Pulse 94 94 94 Oximetry 12/03/18 12/03/18 12/03/18 05:11 05:21 05:30 Temperature Pulse Rate 79 76 77 Pulse Rate [ From Monitor] Respiratory 29 H 27 H 26 H Rate Blood Pressure 84/36 80/32 74/34 O2 Sat by Pulse 94 94 93 Oximetry 12/03/18 12/03/18 12/03/18 05:41 05:51 06:00 Temperature Pulse Rate 77 72 69 Pulse Rate [ From Monitor] Respiratory 26 H 24 22 Rate Blood Pressure 74/34 77/30 64/34 O2 Sat by Pulse 90 91 90 Oximetry 12/03/18 08:00 Temperature 92.7 F L Pulse Rate Pulse Rate [ From Monitor] Respiratory Rate Blood Pressure O2 Sat by Pulse Oximetry - General Appearance General appearance: well-developed, appears stated age, intubated, other (on vent) EENT: ATNC, PERRL Neck: supple Respiratory: Present: Clear to Ascultation Cardiology: irregularly irregular, S1S2, no murmurs Gastrointestinal: normoactive bowel sounds, no tenderness, no distended Integumentary: no rash, warm and dry Neurologic: obtunded Musculoskeletal: other (no edema) - Lab 12/03/18 04:21 12/03/18 09:07 Most recent lab results Calcium 8.4 mg/dL (8.4-10.2) 12/03/18 04:21 Phosphorus 2.10 mg/dL (2.5-4.5) L D 12/03/18 04:21 Magnesium 1.80 mg/dL (1.7-2.3) 12/02/18 13:36 Medications & Allergies - Medications Allergies/Adverse Reactions: Allergies No Known Allergies Allergy (Unverified 12/19/16 21:37) Home Medications: Home Medications Medication Instructions Recorded Confirmed Last Taken Type Insulin Aspart [Novolog] 100 unit SUB-Q DAILY 05/14/18 05/14/18 Unknown History Active Medications: Generic Name Dose Route Start Last Admin Trade Name Freq PRN Reason Stop Dose Admin Acetaminophen 650 mg 12/02/18 13:24 Tylenol PO Q4H PRN Pain MILD(1-3)/Fever >100.5/GRANDE Acetaminophen/Hydrocodone Bitart 2 each 12/02/18 13:24 [place] 5/325 PO Q6H PRN Pain, Moderate (4-6) Dextrose 0 ml 12/02/18 13:09 D50w (25gm) Syringe IV PRN PRN Hypoglycemia Insulin Human Regular 100 100 mls @ 1 mls/hr 12/02/18 10:00 12/03/18 08:06 units/ Sodium Chloride IV 28 units/hr TITR MATTI 28 mls/hr Administration Protocol 1 UNITS/HR Amiodarone HCl 900 mg/ 500 mls @ 33.333 mls/hr 12/02/18 14:00 12/02/18 20:30 Dextrose IV 0.5 mg/min DIRECT MATTI 16.667 mls/hr Infusion Protocol 1 MG/MIN Norepinephrine 4 mg in 250 mls @ 7.5 mls/hr 12/03/18 08:00 12/03/18 09:00 Levophed Drip 4 Mg/Ns 250 Ml IV 16 mcg/min TITR MATTI 60 mls/hr Titration Protocol 2 MCG/MIN Sodium Bicarbonate 150 meq/ 1,150 mls @ 75 mls/hr 12/03/18 08:00 12/03/18 08:26 Dextrose IV 75 mls/hr DIRECT MATTI Administration Piperacillin Sod/Tazobactam Sod 3.375 gm in 50 mls @ 100 mls/hr 12/03/18 10:00 Zosyn/Ns 3.375gm/50ml IV Q8HR MATTI Protocol Metoprolol Tartrate 5 mg 12/02/18 15:42 Lopressor IV Q6HR PRN Tachyarrhythmias Morphine Sulfate 2 mg 12/02/18 14:46 Morphine IV Q4H PRN Pain , Severe (7-10) Ondansetron HCl 4 mg 12/02/18 13:24 12/02/18 14:10 Zofran IV 4 mg Q8H PRN Administration N/V unrelieved by Magno Pantoprazole Sodium 40 mg 12/02/18 15:00 12/02/18 21:36 Protonix IV 40 mg BID MATTI Administration
[2018-12-03 09:51] LABS: Albumin 2.4 g/dL (3.9-5)
[2018-12-03] MEDS ORDERED: ZOSYN/NS 3.375GM/50ML 3.375 GM/50 ML BAG IV SCH (10:00)
[2018-12-03] MEDS ORDERED: NACL 0.9% 1000 ML 2,000 ML IV ONE (10:00)
[2018-12-03 10:39] LABS: INR 1.33 (0.87-1.13)
[2018-12-03 10:40] LABS: Partial Thromboplastin Time 30.8 Sec. (24.2-36.6)
[2018-12-03] MEDS ORDERED: PEPCID IV SCH (11:00)
--- NOTE | 2018-12-03 11:09 | Progress Note ---
Assessment and Plan 88 y/o male with DKA and afib with RVR, now with bradycardia, altered mental state and acute respiratory failure. 1. IV hydration, needs more boluses now. 2. Severe metabolic acidosis, likely from hypotension. Increase rate on bicarb drip to 150 3. Continue insulin drip 4. Picc line placement and continue IV pressors. MAP of 60 is acceptable 5. Overall prognosis is guarded to poor. Will attempt to place art line and remove I/O. Ok with jouse. Will speak with daughter about overall prognosis. CCT 31 minutes. Subjective Date of service: 12/03/18 Interval history: patient had an acute change in clinical status at shift change. Required intubation and now on vasopresso therapy. Completely unresponsive on vent with no sedation. Daughter called by IMS this am. Currently getting picc lined place. Objective - Constitutional Vitals: Vital Signs - 12hr 12/02/18 12/02/18 12/02/18 23:05 23:11 23:21 Temperature 98.2 F Pulse Rate 80 81 Pulse Rate [ From Monitor] Respiratory 34 H 32 H Rate Blood Pressure 95/41 95/41 O2 Sat by Pulse 98 98 Oximetry 12/02/18 12/02/18 12/02/18 23:30 23:41 23:51 Temperature Pulse Rate 80 83 81 Pulse Rate [ From Monitor] Respiratory 24 34 H 35 H Rate Blood Pressure 90/46 95/41 95/41 O2 Sat by Pulse 97 93 94 Oximetry 12/03/18 12/03/18 12/03/18 00:00 00:11 00:21 Temperature Pulse Rate 81 81 82 Pulse Rate [ 81 From Monitor] Respiratory 31 H 35 H 35 H Rate Blood Pressure 96/46 90/46 90/46 O2 Sat by Pulse 96 96 97 Oximetry 12/03/18 12/03/18 12/03/18 00:30 00:41 00:51 Temperature Pulse Rate 82 82 81 Pulse Rate [ From Monitor] Respiratory 34 H 31 H 38 H Rate Blood Pressure 92/39 92/39 92/39 O2 Sat by Pulse 94 94 95 Oximetry 12/03/18 12/03/18 12/03/18 01:00 01:11 01:21 Temperature Pulse Rate 83 81 83 Pulse Rate [ From Monitor] Respiratory 37 H 38 H 37 H Rate Blood Pressure 101/36 96/46 96/46 O2 Sat by Pulse 92 90 89 Oximetry 12/03/18 12/03/18 12/03/18 01:30 01:41 01:51 Temperature Pulse Rate 79 83 81 Pulse Rate [ From Monitor] Respiratory 40 H 38 H 41 H Rate Blood Pressure 100/44 100/44 100/44 O2 Sat by Pulse 92 90 90 Oximetry 12/03/18 12/03/18 12/03/18 02:00 02:11 02:21 Temperature Pulse Rate 82 80 88 Pulse Rate [ From Monitor] Respiratory 32 H 41 H 42 H Rate Blood Pressure 81/38 101/36 101/36 O2 Sat by Pulse 69 L 90 90 Oximetry 12/03/18 12/03/18 12/03/18 02:30 02:41 02:51 Temperature Pulse Rate 85 82 86 Pulse Rate [ From Monitor] Respiratory 39 H 39 H 41 H Rate Blood Pressure 92/37 92/37 92/37 O2 Sat by Pulse 90 89 87 Oximetry 12/03/18 12/03/18 12/03/18 03:00 03:11 03:21 Temperature Pulse Rate 86 82 84 Pulse Rate [ From Monitor] Respiratory 41 H 34 H 33 H Rate Blood Pressure 90/38 90/38 90/38 O2 Sat by Pulse 87 86 Oximetry 12/03/18 12/03/18 12/03/18 03:23 03:31 03:40 Temperature 97.5 F L Pulse Rate 85 91 H Pulse Rate [ From Monitor] Respiratory 18 27 H Rate Blood Pressure 90/38 76/33 O2 Sat by Pulse 83 L Oximetry 12/03/18 12/03/18 12/03/18 03:51 04:00 04:11 Temperature Pulse Rate 87 87 83 Pulse Rate [ 81 From Monitor] Respiratory 34 H 36 H 36 H Rate Blood Pressure 80/34 86/38 86/38 O2 Sat by Pulse 87 90 90 Oximetry 12/03/18 12/03/18 12/03/18 04:21 04:30 04:41 Temperature Pulse Rate 78 76 78 Pulse Rate [ From Monitor] Respiratory 34 H 27 H 33 H Rate Blood Pressure 86/35 82/32 82/32 O2 Sat by Pulse 91 93 94 Oximetry 12/03/18 12/03/18 12/03/18 04:51 05:00 05:11 Temperature Pulse Rate 76 82 79 Pulse Rate [ From Monitor] Respiratory 25 H 31 H 29 H Rate Blood Pressure 84/36 74/35 84/36 O2 Sat by Pulse 94 94 94 Oximetry 12/03/18 12/03/18 12/03/18 05:21 05:30 05:41 Temperature Pulse Rate 76 77 77 Pulse Rate [ From Monitor] Respiratory 27 H 26 H 26 H Rate Blood Pressure 80/32 74/34 74/34 O2 Sat by Pulse 94 93 90 Oximetry 12/03/18 12/03/18 12/03/18 05:51 06:00 08:00 Temperature 92.7 F L Pulse Rate 72 69 Pulse Rate [ From Monitor] Respiratory 24 22 Rate Blood Pressure 77/30 64/34 O2 Sat by Pulse 91 90 Oximetry General appearance: Present: other (comatose) - EENT ENT: other (orally intubated, not on sedation) - Neck Neck: supple - Respiratory Respiratory: bilateral: diminished - Cardiovascular Rhythm: regular Heart Sounds: Present: S1 & S2 - Gastrointestinal General gastrointestinal: Present: soft, non-tender - Labs CBC & Chem 7: 12/03/18 04:21 12/03/18 09:07 Labs: Abnormal lab results 12/02/18 12/02/18 12/02/18 Range/Units 10:30 11:06 11:12 Hgb (11.8-15.2) gm/dl Hct (35.5-45.6) % PT (12.2-14.9) Sec. INR (0.87-1.13) POC ABG pH (7.35-7.45) POC ABG pO2 (80-105) Sodium 129 L (137-145) mmol/L Potassium (3.6-5.0) mmol/L Chloride 84.0 L (98-107) mmol/L Carbon Dioxide 6 L* (22-30) mmol/L BUN 59 H (9-20) mg/dL Creatinine 3.4 H (0.8-1.5) mg/dL Glucose 1043 H* (75-100) mg/dL POC Glucose > 500 H > 500 H (70-105) Lactic Acid (0.7-2.0) mmol/L Calcium (8.4-10.2) mg/dL Phosphorus (2.5-4.5) mg/dL AST (5-40) units/L Troponin T (0.00-0.029) ng/mL Total Protein (6.3-8.2) g/dL Albumin (3.9-5) g/dL 12/02/18 12/02/18 12/02/18 Range/Units 12:20 12:40 13:18 Hgb (11.8-15.2) gm/dl Hct (35.5-45.6) % PT (12.2-14.9) Sec. INR (0.87-1.13) POC ABG pH (7.35-7.45) POC ABG pO2 (80-105) Sodium (137-145) mmol/L Potassium (3.6-5.0) mmol/L Chloride (98-107) mmol/L Carbon Dioxide (22-30) mmol/L BUN (9-20) mg/dL Creatinine (0.8-1.5) mg/dL Glucose 986 H* (75-100) mg/dL POC Glucose > 500 H > 500 H (70-105) Lactic Acid (0.7-2.0) mmol/L Calcium (8.4-10.2) mg/dL Phosphorus (2.5-4.5) mg/dL AST (5-40) units/L Troponin T (0.00-0.029) ng/mL Total Protein (6.3-8.2) g/dL Albumin (3.9-5) g/dL 12/02/18 12/02/18 12/02/18 Range/Units 13:36 13:36 14:29 Hgb (11.8-15.2) gm/dl Hct (35.5-45.6) % PT (12.2-14.9) Sec. INR (0.87-1.13) POC ABG pH (7.35-7.45) POC ABG pO2 (80-105) Sodium 131 L (137-145) mmol/L Potassium (3.6-5.0) mmol/L Chloride 90.8 L (98-107) mmol/L Carbon Dioxide 7 L* (22-30) mmol/L BUN 53 H (9-20) mg/dL Creatinine 3.2 H (0.8-1.5) mg/dL Glucose 840 H* (75-100) mg/dL POC Glucose > 500 H (70-105) Lactic Acid (0.7-2.0) mmol/L Calcium (8.4-10.2) mg/dL Phosphorus 5.20 H (2.5-4.5) mg/dL AST (5-40) units/L Troponin T (0.00-0.029) ng/mL Total Protein (6.3-8.2) g/dL Albumin (3.9-5) g/dL 12/02/18 12/02/18 12/02/18 Range/Units 15:01 15:59 17:12 Hgb (11.8-15.2) gm/dl Hct (35.5-45.6) % PT (12.2-14.9) Sec. INR (0.87-1.13) POC ABG pH (7.35-7.45) POC ABG pO2 (80-105) Sodium 134 L (137-145) mmol/L Potassium (3.6-5.0) mmol/L Chloride 91.0 L (98-107) mmol/L Carbon Dioxide 5 L* (22-30) mmol/L BUN 58 H (9-20) mg/dL Creatinine 3.5 H (0.8-1.5) mg/dL Glucose 813 H* (75-100) mg/dL POC Glucose > 500 H > 500 H (70-105) Lactic Acid (0.7-2.0) mmol/L Calcium (8.4-10.2) mg/dL Phosphorus (2.5-4.5) mg/dL AST (5-40) units/L Troponin T (0.00-0.029) ng/mL Total Protein (6.3-8.2) g/dL Albumin (3.9-5) g/dL 12/02/18 12/02/18 12/02/18 Range/Units 18:26 18:50 20:04 Hgb (11.8-15.2) gm/dl Hct (35.5-45.6) % PT (12.2-14.9) Sec. INR (0.87-1.13) POC ABG pH (7.35-7.45) POC ABG pO2 (80-105) Sodium (137-145) mmol/L Potassium 2.6 L* D (3.6-5.0) mmol/L Chloride 95.0 L (98-107) mmol/L Carbon Dioxide 11 L (22-30) mmol/L BUN 56 H (9-20) mg/dL Creatinine 3.5 H (0.8-1.5) mg/dL Glucose 515 H* (75-100) mg/dL POC Glucose > 500 H 448 H (70-105) Lactic Acid (0.7-2.0) mmol/L Calcium (8.4-10.2) mg/dL Phosphorus (2.5-4.5) mg/dL AST (5-40) units/L Troponin T (0.00-0.029) ng/mL Total Protein (6.3-8.2) g/dL Albumin (3.9-5) g/dL 12/02/18 12/02/18 12/02/18 Range/Units 20:55 21:10 21:48 Hgb (11.8-15.2) gm/dl Hct (35.5-45.6) % PT (12.2-14.9) Sec. INR (0.87-1.13) POC ABG pH (7.35-7.45) POC ABG pO2 (80-105) Sodium 136 L (137-145) mmol/L Potassium 3.5 L D (3.6-5.0) mmol/L Chloride (98-107) mmol/L Carbon Dioxide 11 L (22-30) mmol/L BUN 52 H (9-20) mg/dL Creatinine 3.2 H (0.8-1.5) mg/dL Glucose 406 H (75-100) mg/dL POC Glucose 434 H 373 H (70-105) Lactic Acid (0.7-2.0) mmol/L Calcium (8.4-10.2) mg/dL Phosphorus (2.5-4.5) mg/dL AST (5-40) units/L Troponin T (0.00-0.029) ng/mL Total Protein (6.3-8.2) g/dL Albumin (3.9-5) g/dL 12/02/18 12/02/18 12/03/18 Range/Units 22:50 23:40 00:03 Hgb (11.8-15.2) gm/dl Hct (35.5-45.6) % PT (12.2-14.9) Sec. INR (0.87-1.13) POC ABG pH (7.35-7.45) POC ABG pO2 (80-105) Sodium (137-145) mmol/L Potassium (3.6-5.0) mmol/L Chloride (98-107) mmol/L Carbon Dioxide (22-30) mmol/L BUN (9-20) mg/dL Creatinine (0.8-1.5) mg/dL Glucose (75-100) mg/dL POC Glucose 387 H 303 H 325 H (70-105) Lactic Acid (0.7-2.0) mmol/L Calcium (8.4-10.2) mg/dL Phosphorus (2.5-4.5) mg/dL AST (5-40) units/L Troponin T (0.00-0.029) ng/mL Total Protein (6.3-8.2) g/dL Albumin (3.9-5) g/dL 12/03/18 12/03/18 12/03/18 Range/Units 01:00 01:37 01:59 Hgb (11.8-15.2) gm/dl Hct (35.5-45.6) % PT (12.2-14.9) Sec. INR (0.87-1.13) POC ABG pH (7.35-7.45) POC ABG pO2 (80-105) Sodium 136 L (137-145) mmol/L Potassium 3.3 L (3.6-5.0) mmol/L Chloride (98-107) mmol/L Carbon Dioxide 12 L (22-30) mmol/L BUN 51 H (9-20) mg/dL Creatinine 3.3 H (0.8-1.5) mg/dL Glucose 199 H (75-100) mg/dL POC Glucose 245 H 244 H (70-105) Lactic Acid (0.7-2.0) mmol/L Calcium (8.4-10.2) mg/dL Phosphorus (2.5-4.5) mg/dL AST (5-40) units/L Troponin T (0.00-0.029) ng/mL Total Protein (6.3-8.2) g/dL Albumin (3.9-5) g/dL 12/03/18 12/03/1812/03/19 Range/Units 03:07 03:48 04:21 Hgb (11.8-15.2) gm/dl Hct (35.5-45.6) % PT (12.2-14.9) Sec. INR (0.87-1.13) POC ABG pH (7.35-7.45) POC ABG pO2 (80-105) Sodium 136 L (137-145) mmol/L Potassium 3.5 L (3.6-5.0) mmol/L Chloride (98-107) mmol/L Carbon Dioxide 12 L (22-30) mmol/L BUN 52 H (9-20) mg/dL Creatinine 3.3 H (0.8-1.5) mg/dL Glucose 189 H (75-100) mg/dL POC Glucose 239 H 180 H (70-105) Lactic Acid (0.7-2.0) mmol/L Calcium (8.4-10.2) mg/dL Phosphorus (2.5-4.5) mg/dL AST (5-40) units/L Troponin T (0.00-0.029) ng/mL Total Protein (6.3-8.2) g/dL Albumin (3.9-5) g/dL 12/03/18 12/03/18 12/03/18 Range/Units 04:21 04:21 04:58 Hgb 11.7 L (11.8-15.2) gm/dl Hct 33.9 L (35.5-45.6) % PT (12.2-14.9) Sec. INR (0.87-1.13) POC ABG pH (7.35-7.45) POC ABG pO2 (80-105) Sodium (137-145) mmol/L Potassium (3.6-5.0) mmol/L Chloride (98-107) mmol/L Carbon Dioxide (22-30) mmol/L BUN (9-20) mg/dL Creatinine (0.8-1.5) mg/dL Glucose (75-100) mg/dL POC Glucose 208 H (70-105) Lactic Acid (0.7-2.0) mmol/L Calcium (8.4-10.2) mg/dL Phosphorus 2.10 L D (2.5-4.5) mg/dL AST (5-40) units/L Troponin T (0.00-0.029) ng/mL Total Protein (6.3-8.2) g/dL Albumin (3.9-5) g/dL 12/03/18 12/03/18 12/03/18 Range/Units 05:08 06:03 06:47 Hgb (11.8-15.2) gm/dl Hct (35.5-45.6) % PT (12.2-14.9) Sec. INR (0.87-1.13) POC ABG pH (7.35-7.45) POC ABG pO2 (80-105) Sodium (137-145) mmol/L Potassium (3.6-5.0) mmol/L Chloride (98-107) mmol/L Carbon Dioxide (22-30) mmol/L BUN (9-20) mg/dL Creatinine (0.8-1.5) mg/dL Glucose (75-100) mg/dL POC Glucose 196 H 214 H 215 H (70-105) Lactic Acid (0.7-2.0) mmol/L Calcium (8.4-10.2) mg/dL Phosphorus (2.5-4.5) mg/dL AST (5-40) units/L Troponin T (0.00-0.029) ng/mL Total Protein (6.3-8.2) g/dL Albumin (3.9-5) g/dL 12/03/18 12/03/18 12/03/18 Range/Units 07:22 08:04 09:07 Hgb (11.8-15.2) gm/dl Hct (35.5-45.6) % PT (12.2-14.9) Sec. INR (0.87-1.13) POC ABG pH 6.798 L (7.35-7.45) POC ABG pO2 (80-105) Sodium (137-145) mmol/L Potassium (3.6-5.0) mmol/L Chloride (98-107) mmol/L Carbon Dioxide (22-30) mmol/L BUN (9-20) mg/dL Creatinine (0.8-1.5) mg/dL Glucose (75-100) mg/dL POC Glucose 252 H (70-105) Lactic Acid (0.7-2.0) mmol/L Calcium (8.4-10.2) mg/dL Phosphorus (2.5-4.5) mg/dL AST (5-40) units/L Troponin T 0.059 H (0.00-0.029) ng/mL Total Protein (6.3-8.2) g/dL Albumin (3.9-5) g/dL 12/03/18 12/03/18 12/03/18 Range/Units 09:07 09:07 09:07 Hgb (11.8-15.2) gm/dl Hct (35.5-45.6) % PT 17.3 H (12.2-14.9) Sec. INR 1.33 H (0.87-1.13) POC ABG pH (7.35-7.45) POC ABG pO2 (80-105) Sodium (137-145) mmol/L Potassium (3.6-5.0) mmol/L Chloride 107.2 H (98-107) mmol/L Carbon Dioxide 13 L (22-30) mmol/L BUN 53 H (9-20) mg/dL Creatinine 3.8 H (0.8-1.5) mg/dL Glucose 203 H (75-100) mg/dL POC Glucose (70-105) Lactic Acid 6.10 H* (0.7-2.0) mmol/L Calcium 8.0 L (8.4-10.2) mg/dL Phosphorus (2.5-4.5) mg/dL AST 83 H (5-40) units/L Troponin T (0.00-0.029) ng/mL Total Protein 4.6 L D (6.3-8.2) g/dL Albumin 2.4 L (3.9-5) g/dL 12/03/18 12/03/18 12/03/18 Range/Units 09:08 09:26 09:42 Hgb (11.8-15.2) gm/dl Hct (35.5-45.6) % PT (12.2-14.9) Sec. INR (0.87-1.13) POC ABG pH 7.027 L 6.928 L (7.35-7.45) POC ABG pO2 72 L (80-105) Sodium (137-145) mmol/L Potassium (3.6-5.0) mmol/L Chloride (98-107) mmol/L Carbon Dioxide (22-30) mmol/L BUN (9-20) mg/dL Creatinine (0.8-1.5) mg/dL Glucose (75-100) mg/dL POC Glucose 222 H (70-105) Lactic Acid (0.7-2.0) mmol/L Calcium (8.4-10.2) mg/dL Phosphorus (2.5-4.5) mg/dL AST (5-40) units/L Troponin T (0.00-0.029) ng/mL Total Protein (6.3-8.2) g/dL Albumin (3.9-5) g/dL 12/03/18 Range/Units 10:19 Hgb (11.8-15.2) gm/dl Hct (35.5-45.6) % PT (12.2-14.9) Sec. INR (0.87-1.13) POC ABG pH (7.35-7.45) POC ABG pO2 (80-105) Sodium (137-145) mmol/L Potassium (3.6-5.0) mmol/L Chloride (98-107) mmol/L Carbon Dioxide (22-30) mmol/L BUN (9-20) mg/dL Creatinine (0.8-1.5) mg/dL Glucose (75-100) mg/dL POC Glucose 242 H (70-105) Lactic Acid (0.7-2.0) mmol/L Calcium (8.4-10.2) mg/dL Phosphorus (2.5-4.5) mg/dL AST (5-40) units/L Troponin T (0.00-0.029) ng/mL Total Protein (6.3-8.2) g/dL Albumin (3.9-5) g/dL - Imaging and cardiology Chest x-ray: image reviewed (intubated, ET tube is a little high with some atelectasis) Medications & Allergies - Medications Allergies/Adverse Reactions: Allergies No Known Allergies Allergy (Unverified 12/19/16 21:37) Home Medications: Home Medications Medication Instructions Recorded Confirmed Last Taken Type Insulin Aspart [Novolog] 100 unit SUB-Q DAILY 05/14/18 05/14/18 Unknown History Active Medications: Generic Name Dose Route Start Last Admin Trade Name Freq PRN Reason Stop Dose Admin Acetaminophen 650 mg 12/02/18 13:24 Tylenol PO Q4H PRN Pain MILD(1-3)/Fever >100.5/GRANDE Acetaminophen/Hydrocodone Bitart 2 each 12/02/18 13:24 Nerinx 5/325 PO Q6H PRN Pain, Moderate (4-6) Dextrose 0 ml 12/02/18 13:09 D50w (25gm) Syringe IV PRN PRN Hypoglycemia Famotidine 20 mg 12/03/18 11:00 Pepcid IV DAILY MATTI Insulin Human Regular 100 100 mls @ 1 mls/hr 12/02/18 10:00 12/03/18 10:05 units/ Sodium Chloride IV 32 units/hr TITR MATTI 32 mls/hr Titration Protocol 1 UNITS/HR Norepinephrine 4 mg in 250 mls @ 7.5 mls/hr 12/03/18 08:00 12/03/18 10:45 Levophed Drip 4 Mg/Ns 250 Ml IV 26 mcg/min TITR MATTI 97.5 mls/hr Titration Protocol 2 MCG/MIN Sodium Bicarbonate 150 meq/ 1,150 mls @ 150 mls/hr 12/03/18 08:00 12/03/18 08:26 Dextrose IV 75 mls/hr DIRECT MATTI Administration Sodium Chloride 2,000 mls @ 999 mls/hr 12/03/18 10:00 12/03/18 10:11 Nacl 0.9% 1000 Ml IV 12/03/18 12:00 999 mls/hr ONCE ONE Administration Metoprolol Tartrate 5 mg 12/02/18 15:42 Lopressor IV Q6HR PRN Tachyarrhythmias Morphine Sulfate 2 mg 12/02/18 14:46 Morphine IV Q4H PRN Pain , Severe (7-10) Ondansetron HCl 4 mg 12/02/18 13:24 12/02/18 14:10 Zofran IV 4 mg Q8H PRN Administration N/V unrelieved by Magno
[2018-12-03] MEDS ORDERED: ATROPINE 0.1% (CARDIAC) ONE (11:18)
--- NOTE | 2018-12-03 11:27 | Progress Note ---
Assessment and Plan Pt had bradycardia and respiratory failure this morning, amio gtt d/c'd and pt intubated. Pt currently hypotensive requiring levophed gtt, intubated, nonresponsive, not on sedation. In SR/ST on tele. no family at bedside. Cont supportive measures. Pt has not been a candidate for [place] systemic anticoagulation in the past given advanced age, dementia and frequent falls and pt currently has suspected GI bleed and therefore no plans for initiation of AC at this time. F/u echo. The patient has been seen in conjunction with Dr. Burks who agrees with the assessment and plan of care. - Patient Problems (1) Paroxysmal atrial fibrillation with rapid ventricular response Current Visit: Yes Status: Acute (2) Acute respiratory failure Current Visit: Yes Status: Acute (3) DKA (diabetic ketoacidoses) Current Visit: Yes Status: Acute (4) Nausea and vomiting Current Visit: Yes Status: Acute (5) GI bleed Current Visit: Yes Status: Suspected (6) Hypotension Current Visit: Yes Status: Acute (7) Acute on chronic renal insufficiency Current Visit: Yes Status: Acute (8) UTI (urinary tract infection) Current Visit: Yes Status: Acute (9) CAD (coronary artery disease) Current Visit: Yes Status: Chronic Qualifiers: Coronary Disease-Associated Artery/Lesion type: [place] artery (10) History of coronary artery stent placement Current Visit: Yes Status: Chronic (11) HTN (hypertension) Current Visit: Yes Status: Chronic Qualifiers: Hypertension type: essential hypertension Qualified Code(s): I10 - Essential (primary) hypertension (12) Dementia Current Visit: Yes Status: Chronic Subjective Date of service: 12/03/18 Principal diagnosis: AFib; DKA Interval history: Pt had bradycardia and respiratory failure this morning, amio gtt d/c'd and pt intubated. Pt currently hypotensive, intubated, nonresponsive, not on sedation. In SR/ST on tele. no family at bedside. Objective Vital Signs Temp Pulse Pulse Resp BP Pulse Ox 12/03/18 08:00 92.7 F L 12/03/18 06:00 69 22 64/34 90 12/03/18 05:51 72 24 77/30 91 12/03/18 05:41 77 26 H 74/34 90 12/03/18 05:30 77 26 H 74/34 93 12/03/18 05:21 76 27 H 80/32 94 12/03/18 05:11 79 29 H 84/36 94 12/03/18 05:00 82 31 H 74/35 94 12/03/18 04:51 76 25 H 84/36 94 12/03/18 04:41 78 33 H 82/32 94 12/03/18 04:30 76 27 H 82/32 93 12/03/18 04:21 78 34 H 86/35 91 12/03/18 04:11 83 36 H 86/38 90 12/03/18 04:00 87 81 36 H 86/38 90 12/03/18 03:51 87 34 H 80/34 87 12/03/18 03:40 91 H 27 H 76/33 83 L 12/03/18 03:31 85 18 90/38 12/03/18 03:23 97.5 F L 12/03/18 03:21 84 33 H 90/38 12/03/18 03:11 82 34 H 90/38 86 12/03/18 03:00 86 41 H 90/38 87 12/03/18 02:51 86 41 H 92/37 87 12/03/18 02:41 82 39 H 92/37 89 12/03/18 02:30 85 39 H 92/37 90 12/03/18 02:21 88 42 H 101/36 90 12/03/18 02:11 80 41 H 101/36 90 12/03/18 02:00 82 32 H 81/38 69 L 12/03/18 01:51 81 41 H 100/44 90 12/03/18 01:41 83 38 H 100/44 90 12/03/18 01:30 79 40 H 100/44 92 12/03/18 01:21 83 37 H 96/46 89 12/03/18 01:11 81 38 H 96/46 90 12/03/18 01:00 83 37 H 101/36 92 12/03/18 00:51 81 38 H 92/39 95 12/03/18 00:41 82 31 H 92/39 94 12/03/18 00:30 82 34 H 92/39 94 12/03/18 00:21 82 35 H 90/46 97 12/03/18 00:11 81 35 H 90/46 96 12/03/18 00:00 81 81 31 H 96/46 96 12/02/18 23:51 81 35 H 95/41 94 12/02/18 23:41 83 34 H 95/41 93 12/02/18 23:30 80 24 90/46 97 12/02/18 23:21 81 32 H 95/41 98 12/02/18 23:11 80 34 H 95/41 98 12/02/18 23:05 98.2 F 12/02/18 23:01 81 32 H 95/41 98 12/02/18 23:00 81 33 H 95/41 98 12/02/18 22:52 83 33 H 99/45 93 12/02/18 22:51 79 32 H 99/45 97 12/02/18 22:40 79 35 H 99/45 99 12/02/18 22:30 85 33 H 99/45 98 12/02/18 22:21 84 30 H 99/40 98 12/02/18 22:11 83 29 H 99/40 98 12/02/18 22:00 83 32 H 89/45 98 12/02/18 21:51 82 26 H 96/43 97 12/02/18 21:41 83 30 H 96/43 97 12/02/18 21:30 83 31 H 96/43 97 12/02/18 21:21 83 26 H 98/33 98 12/02/18 21:11 80 26 H 98/33 98 12/02/18 21:00 80 30 H 98/33 97 12/02/18 20:51 80 31 H 108/42 98 12/02/18 20:41 80 31 H 108/42 98 12/02/18 20:37 97 12/02/18 20:30 80 34 H 108/42 98 12/02/18 20:21 81 26 H 98/45 98 12/02/18 20:11 86 28 H 98/45 97 12/02/18 20:00 97.1 F L 83 80 22 98/45 98 12/02/18 19:51 84 22 104/51 98 12/02/18 19:41 90 30 H 104/51 98 12/02/18 19:30 84 29 H 104/51 97 12/02/18 19:21 83 33 H 95/45 98 12/02/18 19:11 135 H 19 95/45 97 12/02/18 19:01 143 H 32 H 95/45 97 12/02/18 18:51 140 H 21 104/63 94 12/02/18 18:41 137 H 13 104/63 72 L 12/02/18 18:31 148 H 29 H 104/63 97 12/02/18 18:21 142 H 29 H 105/41 99 12/02/18 18:11 143 H 25 H 105/41 97 12/02/18 18:00 140 H 25 H 106/45 97 12/02/18 17:51 133 H 21 106/45 97 12/02/18 17:41 128 H 26 H 106/45 97 12/02/18 17:31 133 H 26 H 86/41 99 12/02/18 17:21 135 H 18 119/57 87 12/02/18 17:11 136 H 22 119/57 98 12/02/18 17:01 141 H 25 H 119/57 98 12/02/18 16:51 95/39 99 12/02/18 16:41 119 H 18 95/39 97 12/02/18 16:30 135 H 19 72/42 98 12/02/18 16:20 129 H 14 109/53 100 12/02/18 16:11 133 H 22 72/42 98 12/02/18 16:00 106 H 21 65/41 98 12/02/18 15:51 129 H 22 67/43 97 12/02/18 15:41 126 H 23 85/49 99 12/02/18 15:31 123 H 24 85/49 91 12/02/18 15:21 115 H 22 91/40 91 12/02/18 15:11 125 H 22 91/40 84 12/02/18 15:00 124 H 21 91/40 89 12/02/18 14:51 123 H 22 109/53 70 L 12/02/18 14:41 120 H 24 102/48 98 12/02/18 14:30 116 H 21 102/48 98 12/02/18 14:20 125 H 23 117/53 98 12/02/18 14:11 144 H 18 109/53 99 12/02/18 14:04 146 H 117/53 12/02/18 14:01 150 H 21 115/44 99 12/02/18 13:51 158 H 19 115/44 91 12/02/18 13:41 145 H 24 115/44 98 12/02/18 13:31 143 H 20 115/44 97 12/02/18 13:21 150 H 22 117/53 98 12/02/18 13:11 146 H 22 117/53 98 12/02/18 13:00 149 H 22 117/53 97 12/02/18 12:51 148 H 17 105/41 99 12/02/18 12:41 147 H 22 105/41 98 12/02/18 12:31 165 H 22 130/55 98 12/02/18 12:21 155 H 22 130/55 99 12/02/18 12:11 149 H 22 130/55 98 12/02/18 12:00 146 H 21 130/55 96 12/02/18 11:51 141 H 20 110/42 99 - Physical Examination General: Other (intubated) HEENT: Positive: PERRL Neck: Positive: neck supple, trachea midline Cardiac: Positive: Regular Rhythm, S1/S2 Lungs: Positive: Oxygen, Ventilated Respirations Neuro: Positive: Other (intubated) Skin: Negative: Rash Musculoskeletal: No Pain Extremities: Absent: edema - Labs and Meds Cardiac Enzymes 12/03/18 Range/Units 09:07 AST 83 H (5-40) units/L Coagulation 12/03/18 Range/Units 09:07 PT 17.3 H (12.2-14.9) Sec. INR 1.33 H (0.87-1.13) APTT 30.8 (24.2-36.6) Sec. CBC 12/03/18 Range/Units 04:21 WBC 4.7 (4.5-11.0) K/mm3 RBC 3.77 (3.65-5.03) M/mm3 Hgb 11.7 L (11.8-15.2) gm/dl Hct 33.9 L (35.5-45.6) % Plt Count 236 (140-440) K/mm3 Lymph # 1.2 (1.2-5.4) K/mm3 [place] # 0.2 (0.0-0.8) K/mm3 Eos # 0.0 (0.0-0.4) K/mm3 Baso # 0.0 (0.0-0.1) K/mm3 Comprehensive Metabolic Panel 0612/02/18 12/02/18 Range/Units 11:06 12:40 13:36 Sodium 129 L 131 L (137-145) mmol/L Potassium 4.4 4.1 (3.6-5.0) mmol/L Chloride 84.0 L 90.8 L (98-107) mmol/L Carbon Dioxide 6 L* 7 L* (22-30) mmol/L BUN 59 H 53 H (9-20) mg/dL Creatinine 3.4 H 3.2 H (0.8-1.5) mg/dL Glucose 1043 H* 986 H* 840 H* (75-100) mg/dL Calcium 8.8 9.0 (8.4-10.2) mg/dL AST (5-40) units/L ALT (7-56) units/L Alkaline Phosphatase (35-129) units/L Total Protein (6.3-8.2) g/dL Albumin (3.9-5) g/dL 12/02/18 12/02/18 12/02/18 Range/Units 15:01 18:50 20:55 Sodium 134 L 137 136 L (137-145) mmol/L Potassium 3.6 2.6 L* D 3.5 L D (3.6-5.0) mmol/L Chloride 91.0 L 95.0 L 102.2 (98-107) mmol/L Carbon Dioxide 5 L* 11 L 11 L (22-30) mmol/L BUN 58 H 56 H 52 H (9-20) mg/dL Creatinine 3.5 H 3.5 H 3.2 H (0.8-1.5) mg/dL Glucose 813 H* 515 H* 406 H (75-100) mg/dL Calcium 8.9 8.8 8.5 (8.4-10.2) mg/dL AST (5-40) units/L ALT (7-56) units/L Alkaline Phosphatase (35-129) units/L Total Protein (6.3-8.2) g/dL Albumin (3.9-5) g/dL 12/03/18 12/03/18 12/03/18 Range/Units 01:37 04:21 09:07 Sodium 136 L 136 L 138 (137-145) mmol/L Potassium 3.3 L 3.5 L 4.0 (3.6-5.0) mmol/L Chloride 105.2 106.8 107.2 H (98-107) mmol/L Carbon Dioxide 12 L 12 L 13 L (22-30) mmol/L BUN 51 H 52 H 53 H (9-20) mg/dL Creatinine 3.3 H 3.3 H 3.8 H (0.8-1.5) mg/dL Glucose 199 H 189 H 203 H (75-100) mg/dL Calcium 8.7 8.4 8.0 L (8.4-10.2) mg/dL AST 83 H (5-40) units/L ALT 26 (7-56) units/L Alkaline Phosphatase 78 (35-129) units/L Total Protein 4.6 L D (6.3-8.2) g/dL Albumin 2.4 L (3.9-5) g/dL - Imaging and Cardiology EKG: report reviewed, image reviewed Echo: report reviewed (12/2017 showed EF 50-55%, trace MR, mild TR. )
--- NOTE | 2018-12-03 11:50 | XRay Report ---
AP CHEST: HISTORY: The right upper extremity PICC line placement A right arm PICC line has been inserted which terminates just below the cavoatrial junction. The endotracheal tube and nasogastric tube remain in good position. Hazy bilateral lower lung opacities have developed since 0742 hours earlier today. This probably represents atelectatic changes, congestive changes or possibly infiltrates. The upper lung zones remain clear. Heart size is normal. IMPRESSION: Right arm PICC as described. Hazy bilateral lower lung zone opacities have developed as described.
[2018-12-03] MEDS ORDERED: LEVOPHED 8 MG in NACL 0.9% 250ML 242 ML IV SCH (12:00)
[2018-12-03] MEDS ORDERED: NACL 0.9% 500 ML 500 ML ONE (12:02)
[2018-12-03] MEDS ORDERED: NACL 0.9% 500 ML 500 ML IV ONE (12:02)
[2018-12-03] MEDS ORDERED: NEO-SYNEPHRINE 100 MG in NACL 0.9% 90 ML IV SCH (12:15)
[2018-12-03 12:29] LABS: Chol/HDL Ratio 1.91 %
[2018-12-03] MEDS ORDERED: ADRENALIN ONE (12:45)
[2018-12-03] MEDS ORDERED: Vasostrict 20 UNIT in NACL 0.9% 100 ML IV SCH (13:00)
[2018-12-03 13:26] VITALS: BP 68/34
--- NOTE | 2018-12-03 14:17 | Discharge Summary ---
Providers - Providers Date of Admission: 12/02/18 09:28 Attending physician: BELA ESTES MD 12/02/18 09:19 Consult to Dietitian/Nutrition [CONS] Routine Physician Instructions: Reason For Exam: DKA Reason for Consult: Nutrition Recommendations Reason for Consult: Diet education 12/02/18 12:54 Consult to Physician [CONS] Routine Comment: Consulting Provider: RUSTAM CRISTINA Physician Instructions: Reason For Exam: atrial fib 12/02/18 13:10 Consult to Dietitian/Nutrition [CONS] Routine Physician Instructions: Reason For Exam: DKA Reason for Consult: Nutrition Recommendations Reason for Consult: Diet education 12/02/18 14:22 Consult to Physician [CONS] Routine Comment: Consulting Provider: JAYANT BOYLE Physician Instructions: Reason For Exam: CC admission Consult to Physician [CONS] Routine Comment: Consulting Provider: SANDIP BARRIOS Physician Instructions: Reason For Exam: DARREN on possible CKD 12/02/18 14:47 Consult to Physician [CONS] Routine Comment: Consulting Provider: MAURICIO JIMENEZ Physician Instructions: Reason For Exam: coffee-ground emesis 12/02/18 14:59 PICC Line Insertion [Consult to PICC Line RN] [CONS] Routine Reason For Exam: IV access Type Line:: Midline 12/03/18 09:19 PICC Line Insertion [Consult to PICC Line RN] [CONS] Routine Reason For Exam: Central IV access. Type Line:: PICC Primary care physician: DESTINI CUELLAR Hospitalization Reason for admission: DKA, acute renal failure, metabolic acidosis, a fib with RVR, septic shock Condition: Critical Pertinent studies: Chest x-ray Abdominal x-ray Hospital course: Admission H/P The patient is an 80-year-old white male with history of diabetes mellitus on insulin, chronic atrial fibrillation presents to the emergency department with a chief complaint elevated blood glucose levels. Patient states he has been out of his insulin for the last 4 days. Patient complains of vomiting for the last 3-4 days as well along with epigastric sharp, 7 out of 10 abdominal pain. Patient denies any chest pain, shortness breath, or diarrhea. On admission his blood glucose was 1151, pH of 7.09, bicarbonate 6, creatinine 3.5, UA suggestive for UTI with positive leukocytosis. Patient was given IV fluid bolus, placed on insulin drip. He also noted to have atrial fibrillation with RVR, given Cardizem 20 mg IV. Patient is getting admitted to the ICU for further work up and management. I was called earlier morning on 12/03 by the Nursing staff that the patient was hypotensive, agonal breathing and severe bradycardia. Patient was intubated, centralline to be placed and placed on levophed. Patient was given atropine and heart rate normalized. Family notified about his condition. Despite the above treatment patient was still acidotic, acute renal failure, hypotensive and patient was coded. He was coded according to ACLS protocol and in the meantime from any sign DNR/DNI and patient immediately. Disposition: DC-20 Time spent for discharge: 35 minutes - Discharge Diagnoses (1) Severe sepsis Status: Acute (2) Acute kidney injury Status: Acute (3) Acute respiratory failure Status: Acute (4) Atrial fibrillation with rapid ventricular response Status: Acute (5) DKA (diabetic ketoacidoses) Status: Acute (6) Elevated troponin Status: Acute (7) Hx of heart artery stent Status: Acute (8) Leukocytosis Status: Acute (9) UTI (urinary tract infection) Status: Acute (10) Cardiomyopathy Status: Chronic Qualifiers: Cardiomyopathy type: other Qualified Code(s): I42.8 - Other cardiomyopathies (11) Dementia Status: Chronic (12) Frequent falls Status: Chronic (13) History of coronary artery stent placement Status: Chronic (14) Dehydration Status: Resolved Core Measure Documentation - Palliative Care Palliative Care/ Comfort Measures: Not Applicable - Core Measures Any of the following diagnoses?: none Exam - Physical Exam Narrative exam: No pulse, no breathing, pupils are Fixated and dilated - Constitutional Vitals: Temp Pulse Resp BP Pulse Ox 96.4 F L 97 H 20 68/34 90 12/03/18 12:00 12/03/18 13:20 12/03/18 13:20 12/03/18 13:20 12/03/18 13:20 Plan Activity: no restrictions Weight Bearing Status: Full Weight Bearing Follow up with: DESTINI CUELLAR [Other] - 3-5 Days
--- NOTE | 2018-12-03 14:20 | Death Note ---
Note Date of : 12/03/18 Time of : 13:40 Time Pronounced: 13:46
--- NOTE | 2018-12-03 17:06 | Event Note ---
Date: 12/03/18 GI consult noted and patient was seen this morning by GI service. At that time, no overt signs of active bleeding noted. Patient critically ill from DKA, metabolic acidosis and respiratory failure. Patient was on protonix IV drip. Hgb at 11. No endoscopic interventions amendable given unstable hemodynamic status and no signs of active bleeding. Case was discussed with the primary team. Patient before full consult could be completed.
== END 2018-12-03 16:30 | DRG 871 ==
LOC: ED 06:23 → CC1 09:28
PROVIDERS: ADMIT Internal Medicine; ATTEND Internal Medicine
PROC: 5A1935Z Respiratory Ventilation, Less than 24 Consecutive Hours (ICD-10-PCS; principal; 2018-12-03)
PROC: 0BH17EZ Insertion of Endotracheal Airway into Trachea, Via Natural or Artificial Opening (ICD-10-PCS; 2018-12-03)
PROC: 4A033R1 Measurement of Arterial Saturation, Peripheral, Percutaneous Approach (ICD-10-PCS; 2018-12-03)
PROC: 02HV33Z Insertion of Infusion Device into Superior Vena Cava, Percutaneous Approach (ICD-10-PCS; 2018-12-03)
DX: A41.9 Sepsis, unspecified organism (principal); R65.21 Severe sepsis with septic shock; E11.10 Type 2 diabetes mellitus with ketoacidosis without coma; J96.00 Acute respiratory failure, unspecified whether with hypoxia or hypercapnia; K92.2 Gastrointestinal hemorrhage, unspecified; N17.9 Acute kidney failure, unspecified; N39.0 Urinary tract infection, site not specified; I13.0 Hypertensive heart and chronic kidney disease with heart failure and stage 1 through stage 4 chronic kidney disease, or unspecified chronic kidney disease; R57.9 Shock, unspecified; I25.10 Atherosclerotic heart disease of native coronary artery without angina pectoris; E11.22 Type 2 diabetes mellitus with diabetic chronic kidney disease; I48.0 Paroxysmal atrial fibrillation; N18.3 Chronic kidney disease, stage 3 (moderate); I27.20 Pulmonary hypertension, unspecified; I48.2 Chronic atrial fibrillation; F03.90 Unspecified dementia, unspecified severity, without behavioral disturbance, psychotic disturbance, mood disturbance, and anxiety; Z79.4 Long term (current) use of insulin; Z95.5 Presence of coronary angioplasty implant and graft
CPT/HCPCS: 36415; 36600; 71045; 74018; 80048; 80053; 80061; 81001; 82140; 82271; 82374; 82803; 82805; 82947; 82962; 83735; 84100; 84484; 85025; 85610; 85730; 87040; 87086; 87116; 93005; 93010; 94002; 94003; 94760; 96372; G0378; C9113; J0171; J0282; J0461; J0696; J1815; J2405; J3480; J7030; J7040; J7050; J7060; J7070